=== PATIENT | female | born 2000 | race Hispanic/Latino ===

== ENCOUNTER 2020-09-03 10:37 | Emergency (ER) | payer OTHER, SELFPAY ==
[2020-09-04 00:45] LABS: SARS-COV-2 RT PCR NEGATIVE (NEGATIVE)
[2020-09-04] MEDS ORDERED: MECLIZINE HCL 12.5 MG TAB ONE (00:59)
[2020-09-04] MEDS ORDERED: NA CHLORIDE 0.9% 1,000 ML ONE (01:00)
[2020-09-04] MEDS ORDERED: ONDANSETRON 4 MG/2 ML VIAL ONE (01:00)
[2020-09-04 01:18] LABS: Absolute Lymphocytes (CBC) 2.5 K/uL (0.7-4.9); Basophils % 0.5 % (0-1.3); Hematocrit 36.6 % (36.0-45.0); Lymphocytes % 25.1 % (15.3-44.8); MPV 8.3 fL (7.6-11.3)
[2020-09-04 01:31] LABS: Urine Blood 2+ (NEG); Urine Glucose NEGATIVE (NEG); Urine Protein NEGATIVE (NEG); Urine Specific Gravity 1.025 (1.005-1.030); Urine pH 5.5 (5.0-7.0)
[2020-09-04 01:31] LABS: ALT/SGPT 27 U/L (12-78); AST/SGOT 22 U/L (15-37); Albumin 3.7 g/dL (3.4-5.0); Alkaline Phosphatase 139 U/L (45-117); BUN Blood Urea Nitrogen 16 mg/dL (7-18); Bicarbonate 25 mmol/L (21-32); Bilirubin Direct < 0.1 mg/dL (0-0.2); Bilirubin Total 0.2 mg/dL (0.2-1.0); Glucose Level 83 mg/dL (74-106); Potassium 4.1 mmol/L (3.5-5.1); Protein, Total 8.3 g/dL (6.4-8.2); Sodium Level 142 mmol/L (136-145)
[2020-09-04 03:10] LABS: Urine Bacteria <20 /HPF (<20); Urine RBC <5 /HPF (NONE SEEN)
--- NOTE | 2020-09-04 04:54 | EDPHYS ---
Physician Documentation [facility] Name: Summer Gaming Age: 20 yrs Sex: Female : 2000 Arrival Date: 09/03/2020 Time: 22:37 Bed 20 Private MD: ED Physician Giovanny Martínez HPI: 09/04 00:29 This 20 yrs old Female presents to ER via Ambulatory with complaints of pkl Dizziness. 00:29 The patient presents with sense of spinning. Onset: The symptoms/episode began/occurred pkl just prior to arrival, 3 hour(s) ago. Associated signs and symptoms: Pertinent positives: shortness of breath. [employer]: 03:07 LMP N/A - Recent mg2 Historical: - Allergies: 09/03 22:44 Tramadol HCl; dm5 - Immunization history:: Flu vaccine status is unknown. - Social history:: Smoking status: unknown. ROS: 09/04 00:29 Eyes: Negative for injury, pain, redness, and discharge, ENT: Negative for injury, pkl pain, and discharge, Neck: Negative for injury, pain, and swelling, Cardiovascular: Negative for chest pain, palpitations, and edema. Respiratory: Positive for shortness of breath. Abdomen/GI: Positive for nausea and vomiting. Back: Negative for acute changes. : Negative for urinary symptoms. MS/extremity: Negative for acute changes. Skin: Negative for rash. Neuro: Positive for dizziness, Negative for altered mental status. Exam: 00:29 Head/Face: Normocephalic, atraumatic. Eyes: Pupils equal round and reactive to light, pkl extra-ocular motions intact. Lids and lashes normal. Conjunctiva and sclera are non-icteric and not injected. Cornea within normal limits. Periorbital areas with no swelling, redness, or edema. ENT: Nares patent. No nasal discharge, no septal abnormalities noted. Tympanic membranes are normal and external auditory canals are clear. Oropharynx with no redness, swelling, or masses, exudates, or evidence of obstruction, uvula midline. Mucous membranes moist. Neck: Trachea midline, no thyromegaly or masses palpated, and no cervical lymphadenopathy. Supple, full range of motion without nuchal rigidity, or vertebral point tenderness. No Meningismus. Chest/axilla: Normal chest wall appearance and motion. Nontender with no deformity. No lesions are appreciated. Cardiovascular: Regular rate and rhythm with a normal S1 and S2. No gallops, murmurs, or rubs. Normal PMI, no JVD. No pulse deficits. Respiratory: Lungs have equal breath sounds bilaterally, clear to auscultation and percussion. No rales, rhonchi or wheezes noted. No increased work of breathing, no retractions or nasal flaring. Abdomen/GI: Soft, non-tender, with normal bowel sounds. No distension or tympany. No guarding or rebound. No evidence of tenderness throughout. Back: No spinal tenderness. No costovertebral tenderness. Full range of motion. Skin: Warm, dry with normal turgor. Normal color with no rashes, no lesions, and no evidence of cellulitis. MS/ Extremity: Pulses equal, no cyanosis. Neurovascular intact. Full, normal range of motion. Neuro: Awake and alert, GCS 15, oriented to person, place, time, and situation. Cranial nerves II-XII grossly intact. Motor strength 5/5 in all extremities. Sensory grossly intact. Cerebellar exam normal. Normal gait. Vital Signs: 09/03 22:40 BP 131 / 82; Pulse 80; Resp 20; Temp 98.8(O); Pulse Ox 99% on R/A; Weight 77.11 kg; dm5 Height 5 ft. 6 in. (167.64 cm); Pain 0/10; 09/04 00:11 BP 119 / 92; Pulse 80; Resp 18; Temp 98.5; Pulse Ox 100% on R/A; mg2 03:06 Pulse 81; Resp 18; Temp 98.4; Pulse Ox 100% on R/A; mg2 05:01 BP 132 / 67; Pulse 59; Resp 18; Pulse Ox 100% on R/A; wh 09/03 22:40 Body Mass Index 27.44 (77.11 kg, 167.64 cm) dm5 MDM: 00:17 Patient medically screened. pkl 04:52 Data reviewed: vital signs, nurses notes, lab test result(s). ED course: Patient pkl feeling better. Advised to follow up with PCP in 2 to 3 days Patient understood instruction. 09/04 00:06 Order name: Urine Dipstick--Ancillary (enter results); Complete Time: 02:18 mw2 09/04 00:06 Order name: Urine --Ancillary (enter results); Complete Time: 02:18 mw2 09/04 00:27 Order name: CBC with Diff; Complete Time: 02:18 pkl 09/04 00:27 Order name: Chem 7; Complete Time: 02:18 pkl 09/04 00:27 Order name: D-Dimer; Complete Time: 02:18 pkl 09/04 00:27 Order name: LFT's; Complete Time: 02:18 pkl 09/04 00:28 Order name: XRAY CXR (1 view) pkl 09/04 00:46 Order name: COVID-19/FLU A+B; Complete Time: 02:18 EDMS 09/04 02:22 Order name: Urine Culture pkl 09/04 02:22 Order name: Urine Microscopic Only; Complete Time: 04:44 pkl Administered Medications: 01:00 Drug: Antivert 50 mg Route: PO; 02:41 Follow up: Response: No adverse reaction mg2 01:02 Drug: NS 0.9% 1000 ml Route: IV; Rate: 1000 ml; Site: right hand; 02:43 Follow up: Response: No adverse reaction; IV Status: Completed infusion; IV Intake: mg2 1000ml 01:04 Drug: Zofran (Ondansetron) 4 mg Route: IVP; Site: right hand; 02:43 Follow up: Response: No adverse reaction mg2 Disposition: 09/04/20 04:54 Discharged to Home. Impression: Acute labyrinthitis. - Condition is Stable. - Prescriptions for Antivert 25 mg Oral Tablet - take 1 tablet by ORAL route every 8 hours As needed; 15 tablet. - Medication Reconciliation Form, Thank You Letter, Antibiotic Education, Prescription Opioid Use form. - Follow up: Private Physician; When: 2 - 3 days; Reason: Re-evaluation by your physician. - Problem is new. - Symptoms have improved. Signatures: Dispatcher [employer] Katey Hughes, RN RN dm5 Giovanny Martínez MD MD pkCésar Tinsley RN RN Deyvi Diaz RN RN mg2 Corrections: (The following items were deleted from the chart) 09/03 23:41 22:47 Influenza Screen (A \T\ B)+BA.LAB.BRZ ordered. EDMS EDMS 23:42 22:47 CORONAVIRUS+MR.LAB.BRZ ordered. EDMT EDMT 09/04 01:31 00:29 URINALYSIS+U.LAB.BRZ ordered. [facility] EDMT 05:02 04:54 09/04/2020 04:54 Discharged to Home. Impression: Acute labyrinthitis. Condition wh is Stable. Forms are Medication Reconciliation Form, Thank You Letter, Antibiotic Education, Prescription Opioid Use. Follow up: Private Physician; When: 2 - 3 days; Reason: Re-evaluation by your physician. Problem is new. Symptoms have improved. pkl
--- NOTE | 2020-09-04 04:54 | ER ---
Nurse's Notes [facility] Name: Summer Gaming Age: 20 yrs Sex: Female : 2000 Arrival Date: 09/03/2020 Time: 22:37 Bed 20 Private MD: Diagnosis: Acute labyrinthitis Presentation: 09/03 22:40 Chief complaint: Patient states: she has felt weak for about 3-4 hours and states that dm5 there is pain when she breathes and that it is heavy. Pt states she has had a cough since 08/21. Pt states that she is still bleeding from having a baby on 08/21 and states that there is a foul odor. Coronavirus screen: Client denies travel out of the [place] in the last 14 days. cough unrelated to allergies, fatigue, Client presents with at least one sign or symptom that may indicate coronavirus-19. Standard/surgical mask placed on the client. Ebola Screen: Patient negative for fever greater than or equal to 101.5 degrees Fahrenheit, and additional compatible Ebola Virus Disease symptoms Patient denies exposure to infectious person. Patient denies travel to an Ebola-affected area in the 21 days before illness onset. No symptoms or risks identified at this time. Initial Sepsis Screen: Does the patient meet any 2 criteria? No. Patient's initial sepsis screen is negative. Does the patient have a suspected source of infection? No. Patient's initial sepsis screen is negative. Risk Assessment: Do you want to hurt yourself or someone else? Patient reports no desire to harm self or others. Onset of symptoms was September 03, 2020. 22:40 Method Of Arrival: Ambulatory dm5 22:40 Acuity: CAHSE 3 dm5 TAR HEEL: 09/04 03:07 LMP N/A - Recent mg2 Historical: - Allergies: 09/03 22:44 Tramadol HCl; dm5 - Immunization history:: Flu vaccine status is unknown. - Social history:: Smoking status: unknown. Screenin:57 Abuse screen: Denies threats or abuse. Denies injuries from another. Nutritional mg2 screening: No deficits noted. Tuberculosis screening: No symptoms or risk factors identified. Fall Risk None identified. Assessment: 23:56 General: Appears in no apparent distress. comfortable, Behavior is calm, cooperative. mg2 Pain: Denies pain. Neuro: Level of Consciousness is awake, alert, obeys commands, Oriented to person, place, time, situation. Neuro: Reports dizziness, a syncopal episode. Cardiovascular: Capillary refill < 3 seconds Patient's skin is warm and dry. Respiratory: Airway is patent Respiratory effort is even, unlabored, Respiratory pattern is regular, symmetrical. GI: No signs and/or symptoms were reported involving the gastrointestinal system. : Reports foul urine odor. EENT: No signs and/or symptoms were reported regarding the EENT system. Derm: Skin is intact, is healthy with good turgor, Skin is pink, warm \T\ dry. normal. Musculoskeletal: Circulation, motion, and sensation intact. Capillary refill < 3 seconds. 09/04 01:45 Reassessment: Patient appears in no apparent distress at this time. Patient and/or mg2 family updated on plan of care and expected duration. Pain level reassessed. Patient is alert, oriented x 3, equal unlabored respirations, skin warm/dry/pink. 05:01 Reassessment: Patient appears in no apparent distress at this time. Patient and/or wh family updated on plan of care and expected duration. Pain level reassessed. Patient is alert, oriented x 3, equal unlabored respirations, skin warm/dry/pink. Patient states feeling better. Patient states symptoms have improved. Vital Signs: 09/03 22:40 BP 131 / 82; Pulse 80; Resp 20; Temp 98.8(O); Pulse Ox 99% on R/A; Weight 77.11 kg; dm5 Height 5 ft. 6 in. (167.64 cm); Pain 0/10; 09/04 00:11 BP 119 / 92; Pulse 80; Resp 18; Temp 98.5; Pulse Ox 100% on R/A; mg2 03:06 Pulse 81; Resp 18; Temp 98.4; Pulse Ox 100% on R/A; mg2 05:01 BP 132 / 67; Pulse 59; Resp 18; Pulse Ox 100% on R/A; wh 09/03 22:40 Body Mass Index 27.44 (77.11 kg, 167.64 cm) dm5 ED Course: 09/03 22:37 Patient arrived in ED. cl3 22:44 Triage completed. dm5 23:39 COVID swab sent to lab. Flu and/or RSV swab sent to lab. sg 23:50 Gardose, Deyvi, ZULAY is Primary Nurse. mg2 23:57 No provider procedures requiring assistance completed. mg2 23:57 Patient has correct armband on for positive identification. Pulse ox on. NIBP on. Door mg2 closed. Warm blanket given. 09/04 00:17 Giovanny Martínez MD is Attending Physician. pkvishal 00:55 Inserted saline lock: 20 gauge in right hand, using aseptic technique. Blood collected. mg2 01:01 LFT's Sent. jb5 01:01 D-Dimer Sent. jb5 01:01 Chem 7 Sent. jb5 01:01 CBC with Diff Sent. jb5 01:03 XRAY CXR (1 view) In Process Unspecified. EDMS 01:26 Notified ED physician of a critical lab result(s). d-dimer 1360. dm5 03:07 Arm band placed on. mg2 05:02 IV discontinued, intact, bleeding controlled, No redness/swelling at site. Administered Medications: 01:00 Drug: Antivert 50 mg Route: PO; 02:41 Follow up: Response: No adverse reaction mg2 01:02 Drug: NS 0.9% 1000 ml Route: IV; Rate: 1000 ml; Site: right hand; 02:43 Follow up: Response: No adverse reaction; IV Status: Completed infusion; IV Intake: mg2 1000ml 01:04 Drug: Zofran (Ondansetron) 4 mg Route: IVP; Site: right hand; 02:43 Follow up: Response: No adverse reaction mg2 Intake: 02:43 IV: 1000ml; Total: 1000ml. mg2 Outcome: 04:54 Discharge ordered by . pkl 05:01 Discharged to home ambulatory. 05:01 Condition: improved 05:01 Discharge instructions given to patient, Instructed on discharge instructions, follow up and referral plans. medication usage, POC Demonstrated understanding of instructions, follow-up care, medications, POC Prescriptions given X 1. 05:02 Patient left the ED. Signatures: Dispatcher [employer] EDMS Katey Davis RN Ramiro Borrego RN Giovanny Desir MD MD pkl Broussard, Jennifer jb5 César Devine RN RN Deyvi Diaz RN RN [facility] [place] Fanta Pace cl3
[2020-09-04 05:08] VITALS: O2SAT 100
[2020-09-04 05:10] VITALS: TEMP 98.4
[2020-09-04 05:11] VITALS: BP 132/67
--- NOTE | 2020-09-04 08:29 | RAD REPORT ---
EXAM DESCRIPTION: RAD - Chest Single View - 09/04/2020 1:02 am CLINICAL HISTORY: DYSPNEA COMPARISON: None TECHNIQUE: AP portable chest image was obtained 09/04/2020 1:02 am . FINDINGS: Lungs are clear. Heart and vasculature are normal. No measurable pleural effusion and no p neumothorax. No acute bony abnormality seen. No acute aortic findings suspected. IMPRESSION: No acute cardiopulmonary process.
== END 2020-09-04 05:02 | disposition home or self-care (01) ==
LOC: ER 22:36
DX: H83.09 Labyrinthitis, unspecified ear (principal); Z20.822 Contact with and (suspected) exposure to COVID-19; Z88.5 Allergy status to narcotic agent
CPT/HCPCS: 0240U; 36415; 71045; 80048; 80076; 81003; 81015; 81025; 85025; 85379; 87086; 87088; 96361; 96374; 99284; J2405; J7030

== ENCOUNTER 2022-04-08 17:14 | Emergency (ER) | payer SELFPAY ==
--- OUTSIDE RECORDS SUMMARY | 2022-04-08 17:17 | XMS REPORT | Continuity of Care Document ---
:2000 Author Organization [facility] t Address [address] Chambers [address] [place] [id number] Care Team Providers Name Role Phone IRINEO ROBERT Primary Care Physician Unavailable IRINEO ROBERT Attending Clinician Unavailable Visit, SandraRmchp Nurse Attending Clinician Unavailable Irineo Resendez Attending Clinician HOLLY CALVO Attending Clinician Unavailable Holly Cantu Attending Clinician [phone] Payers Payer Name Policy Type Policy Number Effective Date Expiration Date Beau toscano [employer] [id number] 2021 ANA 101-150% 00:00:00 Problems Condition Condition Condition Status Onset Resolution Last Treating Co mments Source Name Details Category Date Date Treatment Clinician Date Other Other Disease Active Univers general general 2-09 [place] of counseling [place] advice and advice 00 [place] [facility] Branch contracept contracept mamie mamie management management Chorioamni Chorioamni Disease Active 2019-08 [place] onitis onitis 2- ity of 00:00: [place] [facility] 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 it y of tosis tosis 00:00: [place] [address] Medical Branch History of History of Disease Active 2019-08 [place] kidney kidney 2-28 ity of stones stones 00:00: [place] [facility] Vaginal Vaginal Disease Active 2019-08 Univers yeast yeast 0-23 [place] of infection [place] Vaginal Vaginal Disease Active 2019-08 Univers itching itching 0-14 ity of 00:00: [place] [facility] Flu Flu Disease Active 2019-08 Univers vaccine vaccine 0-14 ity of need need 00:00: [place] [facility] Iron Iron Disease Active Univers disorder disorder 8-12 ity of 00:00: [place] [facility] [place] Allergies, Adverse Reactions, Alerts Allergy Allergy Status Severity Reaction(s) Onset Inactive Treating Comm ents Source Name Type Date Date Clinician Tramadol Propensi Active Hives Univer s ty to 8-12 ity of adverse 00:00: [place] reaction 00 Medical s Branch TRAMADOL DRUG Active Hives Univers INGREDI 8-12 ity of 00:00: [address] Social History Social Habit Start Date Stop Date Quantity Comments Source Exposure to 2022-01-25 2022-02-04 Not sure [facility] SARS-CoV-2 00:00:00 15:22:[address] [facility] (event) [place] Alcohol intake 2022-02-04 2022-02-04 Ex-drinker [facility] 00:00:00 00:00:00 (finding) [facility] Tobacco use and 2020-04-04 2020-04-04 Never used Universit y of exposure 00:00:00 00:00:00 [facility] Sex Ass[birth year] At [birth year] Universit y of 00:00:00 00:00:00 [facility] Smoking Status Start Date Stop Date Source Never smoker [facility] Medications Ordered Filled Start Stop Current Ordering Indication Dosage Frequency Signature Comments Components Source Medication Medication Date Date Medication? Clinician (SIG) Name Name medroxyPROG 2022- No [id number] 150mg Univers ESTERone 11-13- ity of (DEPO-PROVE 16:30: 17:29 [place] RA) 00 :00 Medical injection Branch 150 mg medroxyPROG 2022- No [id number] 150mg 150 mg, Univers ESTERone 11-13- Intramuscu ity of (DEPO-PROVE 16:30: 17:29 juliana [place] RA) 00 :00 [id number], Medical injection 4 doses, Branch 150 mg First dose on Thu11/13/21 at 1130, Last dose on Thu07/23/22 at 1130, Routine medroxyPROG 2022- No [id number] 150mg Univers ESTERone 11-13 ity of (DEPO-PROVE 16:30: 17:29 [facility]) 00 :00 Medical injection Branch 150 mg medroxyPROG No [id number] 150mg 150 mg, Univers ESTERone 11-13 Intramuscu ity of (DEPO-PROVE 16:30: 17:29 lar, [facility]) 00 :00 [id number], Medical injection 4 doses, Branch 150 mg First dose on Thu11/13/21 at 1130, Last dose on Thu07/23/22 at 1130, Routine norethindro 2021- No [id number] 1{tbl} Take 1 Univers ne 0.35 mg 5-27 -16 tablet by ity of tablet 00:00: 00:00 mouth [place] 00 :00 daily. Medical Branch norethindro 2021- No [id number] 1{tbl} Take 1 Univers ne 0.35 mg 5-27 -16 tablet by ity of tablet 00:00: 00:00 mouth [place] 00 :00 daily. Medical Branch docusate 2019-08- No [id number] 240mg Take 1 U nivers calcium 240 16 capsule by i ty of mg capsule 00:00: 00:00 mouth once [place] 00 :00 daily as Medical needed for Branch Constipati on. 2019-08- No [id number] 1{tbl} Take 1 Univers vitamin -21 11-16 tablet by ity of w/FA tablet 00:00: [place] daily. [place] ferrous 2019-08- No [id number] 325mg Take 1 Un christina sulfate 325 -16 tablet by it y of mg (65 mg 00:00: 00:00 [place] iron[place] 00 :00 (two) Medical tablet times Branch daily. ibuprofen 2019-08 No [id number] 600mg Take 1 Univers 600 mg 2-31 03-16 tablet by ity of tablet 00:00: 00:00 mouth [place] 00 :00 every 6 Medical (six) Branch hours as needed (Pain). Take with food or milk. docusate 2019-08- No [id number] 240mg Take 1 U nivers calcium 240 11-06 capsule by i ty of mg capsule 00:00: 00:00 mouth once [place] 00 :00 daily as Medical needed for Branch Constipati on. 2019-08- No [id number] 1{tbl} Take 1 Univers vitamin 11-06 tablet by ity of w/FA tablet 00:00: 00:[place] daily. [place] ferrous 2019-08- No [id number] 325mg Take 1 Un christina sulfate 325 11-06 tablet by it y of mg (65 mg 00:00: 00:00 [place] iron[place] 00 :00 (two) Medical tablet times Branch daily. ibuprofen 2019-08 No [id number] 600mg Take 1 Univers 600 mg 11-06 tablet by ity of tablet 00:00: 00:00 mouth [place] 00 :00 every 6 Medical (six) Branch hours as needed (Pain). Take with food or milk. Immunizations Ordered Filled Immunization Date Status Comments [facility] e Immunization Name Name [facility]9 2021-11-06 Completed University of 00:00:00 [facility]9 2021-11-06 Completed University of 00:00:00 [facility] HPV9 2021-11-06 Completed University of 00:00:00 [facility] HPV9 2021-11-06 Completed University of 00:00:00 [facility]9 2020-10-02 Completed University of 00:00:00 [facility]9 2020-10-02 Completed University of 00:00:00 [facility]9 2020-10-02 Completed University of 00:00:00 [facility]9 2020-10-02 Completed University of 00:00:00 [facility]9 2020-08-22 Completed University of 00:00:00 [facility]9 2020-08-22 Completed University of 00:00:00 [facility]9 2020-08-22 Completed University of 00:00:00 [facility]9 2020-08-22 Completed University 00:00:00 [facility] Influenza Virus 2020-06-06 Completed Universit y of Vaccine Quad .5 mL 00:00:00 [place] [facility] IM 6+ MO Branch TDAP 2020-06-06 Completed University 00:00:00 [facility] Influenza Virus 2020-06-06 Completed Universit y of Vaccine Quad .5 mL 00:00:00 [place] [facility] IM 6+ MO Branch TDAP 2020-06-06 Completed University 00:00:00 [facility] Influenza Virus 2020-06-06 Completed Universit y of Vaccine Quad .5 mL 00:00:[address] [facility] IM 6+ MO Branch TDAP 2020-06-06 Completed University 00:00:00 [facility] Influenza Virus 2020-06-06 Completed Universit y of Vaccine Quad .5 mL 00:00:[address] [facility] IM 6+ MO Branch TDAP 2020-06-06 Completed University 00:00:00 [facility] Vital Signs Vital Name Observation Time Observation Value Comments Source Systolic blood 2022-02-04 20:22:00 119 mm[Hg] Univer sity of pressure [facility] Diastolic blood 2022-02-04 20:22:00 76 mm[Hg] Unive rsity of [facility] Heart rate 2022-02-04 20:22:00 90 /min [facility] Body temperature 2022-02-04 20:22:00 36.33 Susan [facility] Respiratory rate 2022-02-04 20:22:00 18 /min [facility] Body height 2022-02-04 20:22:00 165.1 cm [facility] Body weight 2022-02-04 20:22:00 75.569 kg [facility] BMI 2022-02-04 20:22:00 27.72 kg/m2 [facility] Systolic blood 2021-11-13 16:15:00 116 mm[Hg] Univer sity of pressure [facility] Diastolic blood 2021-11-13 16:15:00 84 mm[Hg] Unive rsity of pressure [facility] Heart rate 2021-11-13 16:15:00 93 /min [facility] Body temperature 2021-11-13 16:15:00 36.89 Susan [facility] 2021-11-13 16:15:00 18 /min [facility] ersity [facility] Body height 2021-11-13 16:15:00 165.1 cm Universi ty of [facility] Body weight 2021-11-13 16:15:[address] [facility] BMI 2021-11-13 16:15:00 28.12 kg/m2 Universi ty [facility] Systolic blood 2021-11-06 15:43:00 129 mm[Hg] Univer sity of pressure [facility] Diastolic blood 2021-11-06 15:43:00 82 mm[Hg] Unive rsity of [facility] Heart rate 2021-11-06 15:43:00 96 /min Universi ty [facility] Body temperature 2021-11-06 15:43:00 36.44 Susan [facility] Respiratory rate 2021-11-06 15:43:00 18 /min [facility] ersity [facility] Body height 2021-11-06 15:43:00 165.1 cm Universi ty of [facility] Body weight 2021-11-06 15:43:[address] [facility] BMI 2021-11-06 15:43:00 [facility] Procedures Procedure Date / Time Performed Performing Clinician Sour e POCT TEST 2021-11-13 16:32:00 Holly Calvo [facility] GC & CHLAMYDIA 2021-11-06 16:53:00 [facility] [place] [facility] GARDASIL 9 (HPV 9V) 2021-11-06 15:48:10 Holly Calvo [facility] VACCINE [facility] POCT TEST 2021-11-06 15:45:00 Holly Calvo [facility] Encounters Start End Encounter Admission Attending Care Care Encounter Source Date/Time Date/Time Type Type Clinicians Facility Department ID 2022-11-06 2022-11-06 Outpatient Lulu ROBERT [facility] [id number] [facility] 10:30:00 10:30:00 JEFERSONNDA ity o f [facility] 2022-04-29 2022-04-29 Outpatient R [facility] [id number] Univers 09:00:00 09:00:[id number] [facility] 2022-04-29 2022-04-29 Outpatient [facility] [id number] Univers 09:00:00 09:00:[address] [facility] 2022-02-05 2022-02-05 Outpatient [facility] [id number] Univers 08:00:00 08:00:[id number] [facility] 2022-02-05 2022-02-05 Outpatient [facility] [id number] Univers 08:00:00 08:00:00 SINAIA ity o f [facility] 2022-02-04 2022-02-04 Nurse Visit, Ang-Rmchp Nurse [facility] [id number] Univers 15:00:00 15:15:00 Visit Irineo Robert SUSTAINABILITY PURCHASING AGENT [id number] [id number] Demetrio as MATERNAL [id number] Med ical & CHILD [address] [place] [address] 2022-02-04 2022-02-04 Outpatient R [facility] [id number] Univers 15:00:00 15:00:[id number] [facility] 2022-02-04 2022-02-[address] [facility] [id number] Univers 15:00:00 15:00:00 SINAIA ity o f [facility] 2021-11-14 2021-11-14 Outpatient [facility] [id number] Univers 14:30:00 14:30:00 SINAIA frankliny o f [facility] 2021-11-14 2021-11-14 Outpatient R [facility] [id number] Univers 10:30:00 10:30:[id number] [facility] 2021-11-13 2021-11-[address] [facility] [id number] Univers 10:30:00 11:30:05 IRINEO noel [facility] 2021-11-13 2021-11-13 Nurse Visit, Ang-Rmchp Nurse [facility] [id number] Univers 10:30:00 11:30:05 Visit Irineo Robert R SUSTAINABILITY PURCHASING AGENT [id number] [facility] [id number] Demetrio as MATERNAL [id number] [facility] & [address] 2021-11-13 2021-11-13 Outpatient R [facility] [id number] Univers 10:30:00 10:30:00 [id number] 2021-11-13 2021-11-[address] [facility] [id number] Univers 10:30:00 10:30:00 IRINEO morales [facility] 2021-11-06 2021-11-[address] [facility] [id number] Univers 13:00:00 11:42:45 HOLLY morales [facility] 2021-11-06 2021-11-[address] [facility] [id number] Univers 10:30:00 11:42:38 HOLLY morales [facility] 2021-11-06 2021-11-06 [facility] [id number] Univers 10:30:00 11:42:38 Visit Holly Carrero SUSTAINABILITY PURCHASING AGENT [id number] [facility] [id number] Demetrio as MATERNAL [id number] [facility] & [address] Results Test Description Test Time Test Comments Results Result Comments Source POCT TEST 2021-11-13 16:32:00 Test Item Value Reference Range Interpretation Comme nts POCT PREG (test code = 1605) Negative On board controls acceptable with C Line (test code = 3574) Yes POCT PREG LOT # (test code = 3575) POCT [facility]REG TEST [facility] (test code = 3576[id number] 15:45:00 Test Item Value Reference Range Interpretation Comments POCT PREG (test code = 1605) Negative On board controls acceptable with C Yes Line (test code = 3574) POCT PREG LOT # (test code = 3575) POCT PREG TEST DATE (test code = 3576[facility] [id number] 15:45:00 Test Item Value Reference Range Interpretation Comments POCT PREG (test code = 1605) Negative On board controls acceptable with C Yes Line (test code = 3574) POCT PREG LOT # (test code = 3575) POCT PREG TEST DATE (test code = 3576) [facility]
[2022-04-08] MEDS ORDERED: ONDANSETRON 4 MG (ODT) TAB ONE (18:07)
--- NOTE | 2022-04-08 18:24 | RAD REPORT ---
EXAM DESCRIPTION: Javier Morales And Linda (2 Views)04/08/2022 6:17 pm CLINICAL HISTORY: Cough COMPARISON: 2020 FINDINGS: The lungs appear clear of acute infiltrate. The heart is normal size IMPRESSION: No acute abnormalities displayed
[2022-04-08 18:58] LABS: Urine Blood 1+ (Negative); Urine Glucose Negative (Negative); Urine Protein Negative (Negative); Urine Specific Gravity >=1.030 (1.005-1.030)
[2022-04-08 19:16] LABS: Urine Bacteria <20 /HPF (<20); Urine RBC <5 /HPF (None Seen)
[2022-04-08 19:17] LABS: Urine Mucus 1+ /HPF (None Seen)
--- NOTE | 2022-04-08 19:43 | EDPHYS ---
Physician Documentation [facility] Name: Summer Cassidy Age: 22 yrs Sex: Female : 2000 Arrival Date: 04/08/2022 Time: 17:16 Bed Treatment Private MD: ED Physician Cody Ridley HPI: 04/08 18:15 This 22 yrs old Female presents to ER via Ambulatory with complaints of Eye cp Problem, Fever, Nausea/Vomiting. 18:15 The patient is experiencing matting or discharge, pain, redness, to the left eye. cp Onset: The symptoms/episode began/occurred 2 day(s) ago. Duration: the symptoms are continuous. Associated signs and symptoms: Pertinent positives: cough times 1 week, sore throat, nausea/vomiting. Patient does not utilize any form of vision correction. Severity of symptoms: in the emergency department the symptoms are unchanged despite home interventions. Historical: - Allergies: 17:51 Tramadol HCl; hb - Home Meds: 17:51 None [Active]; hb - PMHx: 17:51 None; hb - PSHx: 17:51 section; hb - Immunization history:: Adult Immunizations up to date. ROS: 18:20 Constitutional: Negative for body aches, chills, fever, poor PO intake. cp 18:20 Eyes: Positive for discharge, pain, redness, of the left eye. cp 18:20 ENT: Positive for sore throat, Negative for drainage from ear(s), ear pain, difficulty swallowing, difficulty handling secretions. 18:20 Cardiovascular: Negative for chest pain, palpitations. 18:20 Respiratory: Positive for cough, "sounds productive", Negative for shortness of breath, wheezing. 18:20 Abdomen/GI: Positive for nausea and vomiting, Negative for abdominal pain, diarrhea, constipation. 18:20 : Negative for burning with urination. 18:20 Skin: Negative for cellulitis, rash. 18:20 Neuro: Positive for headache. cp 18:20 All other systems are negative. Exam: 18:30 Constitutional: The patient appears in no acute distress, alert, awake, non-toxic, well cp developed, well nourished. 18:30 Head/Face: Normocephalic, atraumatic. cp 18:30 Eyes: Periorbital structures: appear normal, Pupils: equal, round, and reactive to light and accomodation, Extraocular movements: intact throughout, Conjunctiva: injected, in the left eye, mild, Corneas: are normal, Sclera: no appreciated abnormality, Lids and lashes: scant yellow drainage noted left lower lid. Visual gaming: are intact. 18:30 ENT: External ear(s): are unremarkable, Ear canal(s): are normal, clear, TM's: dullness, bilaterally, Nose: is normal, Mouth: Lips: moist, Oral mucosa: pink and intact, moist, Posterior pharynx: Airway: no evidence of obstruction, patent, Tonsils: with erythema, no enlargement, no exudate, swelling, is not appreciated, erythema, that is mild, exudate, is not appreciated, Voice: is normal. 18:30 Neck: ROM/movement: is normal, is supple, without pain, no range of motions limitations, no meningismus, Lymph nodes: no appreciated lymphadenopathy. 18:30 Chest/axilla: Inspection: normal. 18:30 Cardiovascular: Rate: tachycardic, Rhythm: regular. 18:30 Respiratory: the patient does not display signs of respiratory distress, Respirations: normal, no use of accessory muscles, no retractions, labored breathing, is not present, Breath sounds: are clear throughout, no decreased breath sounds, no stridor, no wheezing. 18:30 Abdomen/GI: Exam negative for discomfort, distension, guarding, Inspection: abdomen appears normal. 18:30 Back: CVA tenderness, is absent. 18:30 Skin: cellulitis, is not appreciated, no rash present. 18:30 Neuro: Orientation: to person, place \\T\\ time. Mentation: is normal, Motor: moves all fours, strength is normal, Sensation: is normal, Gait: is steady. Vital Signs: 17:49 BP 143 / 106; Pulse 101; Resp 16; Temp 99.9(O); Pulse Ox 100% on R/A; Weight 75.75 kg; hb Height 5 ft. 6 in. (167.64 cm); Pain 7/10; 20:42 BP 137 / 84; Pulse 91; Resp 17; Temp 98.9; Pulse Ox 100% on R/A; ha1 17:49 Body Mass Index 26.95 (75.75 kg, 167.64 cm) hb MDM: 18:53 Patient medically screened. cp 19:05 Differential diagnosis: Allergic conjunctivitis in Infectious conjunctivitis in cp tonsillitis, COVID-19, influenza, strep, bronchitis. 19:41 Data reviewed: vital signs, nurses notes, lab test result(s), radiologic studies, plain cp films. 19:41 Test interpretation: by ED physician or midlevel provider: plain radiologic studies. cp Counseling: I had a detailed discussion with the patient and/or guardian regarding: the historical points, exam findings, and any diagnostic results supporting the discharge/admit diagnosis, lab results, radiology results, to return to the emergency department if symptoms worsen or persist or if there are any questions or concerns that arise at home. ED course: VSS. Patient appears non-toxic and no signs of respiratory distress. Will discharge to home for continued monitoring. 04/08 17:58 Order name: Influenza Screen (a \\T\\ B); Complete Time: 19:32 04/08 17:58 Order name: Strep; Complete Time: 19:32 04/08 17:58 Order name: COVID-19 SARS RT PCR (Document "Date of Onset" if Symptomatic); Complete cp Time: 19:32 04/08 17:58 Order name: Urine Microscopic Only; Complete Time: 19:32 04/08 19:33 Interpretation: Reviewed. 04/08 18:58 Order name: Urine Dipstick-Ancillary; Complete Time: 19:32 [facility] 04/08 19:32 Interpretation: Normal except: UBLD 1+. 04/08 17:58 Order name: XRAY Chest Pa And Lat (2 Views); Complete Time: 19:32 04/08 19:32 Interpretation: Report reviewed. 04/08 17:58 Order name: Urine Dipstick-Ancillary (obtain specimen); Complete Time: 18:52 04/08 17:58 Order name: Urine Test (obtain specimen); Complete Time: 18:54 04/08 19:02 Order name: Throat Culture [facility] 04/08 19:20 Order name: Urine Culture [facility] 04/08 19:34 Order name: Vital Signs: please update to include blood pressure; Complete Time: 20:43 cp 04/08 19:39 Order name: Visual Acuity; Complete Time: 20:43 cp Administered Medications: 17:59 Drug: Zofran (Ondansetron) 4 mg Route: PO; hb 20:43 Follow up: Response: No adverse reaction ha1 Disposition: 21:16 Co-signature as Attending Physician, Cody Ridley DO I was immediately available on-site ms3 in the Emergency Department for consultation in the care of the patient.. Disposition Summary: 04/08/22 19:42 Discharge Ordered Location: Home cp Problem: new cp Symptoms: have improved cp Condition: Stable cp Diagnosis - Unspecified acute conjunctivitis, left eye cp - Acute upper respiratory infection, unspecified cp Followup: cp - With: Private Physician - When: 2 - 3 days - Reason: Worsening of condition Discharge Instructions: - Discharge Summary Sheet cp - Upper Respiratory Infection, Adult cp - Cool Mist Vaporizer cp Forms: - Medication Reconciliation Form cp - Thank You Letter cp - Antibiotic Education cp - Prescription Opioid Use cp - Work release form mw2 Prescriptions: - Vigamox 0.5 % Ophthalmic Drops - instill 1 drop by OPHTHALMIC route every 8 hours for 7 days; 5 milliliter; cp Refills: 0, Product Selection Permitted - Tessalon Perles 100 mg Oral Capsule - take 1 capsule by ORAL route every 8 hours As needed; 15 capsule; Refills: 0, cp Product Selection Permitted - Zofran 4 mg Oral Tablet - take 1 tablet by ORAL route every 12 hours As needed; 6 tablet; Refills: 0, cp Product Selection Permitted - Zithromax Z-Rodríguez 250 mg Oral Tablet - take 1 tablet by ORAL route as directed for 5 days Day 1 - take two (2) tablets cp one time. Day 2, 3, 4 , 5 take one (1) tablet once daily.; 6 tablet; Refills: 0, Product Selection Permitted Signatures: Dispatcher [employer] EDHI Joseph Yusuf PA PA cp Trixie Caldera RN RN Cody Ridley DO DO ms3 La Nena Sage RN RN ha1 Corrections: (The following items were deleted from the chart) 04/09 16:22 08 18:20 All other systems are negative, cp cp
--- NOTE | 2022-04-08 19:43 | ER ---
Nurse's Notes [facility] Name: Summer Cassidy Age: 22 yrs Sex: Female : 2000 Arrival Date: 04/08/2022 Time: 17:16 Bed Treatment Private MD: Diagnosis: Unspecified acute conjunctivitis, left eye;Acute upper respiratory infection, unspecified Presentation: 04/08 17:49 Chief complaint: Left eye redness and burning x 2 days, fever, N/V, headache, and sore hb throat today. TMAX 100.1. Coronavirus screen: Client presents with at least one sign or symptom that may indicate coronavirus-19. Standard/surgical mask placed on the client. Provider contacted for isolation considerations. Ebola Screen: No symptoms or risks identified at this time. Risk Assessment: Do you want to hurt yourself or someone else? Patient reports no desire to harm self or others. Onset of symptoms was April 07, 2022. 17:49 Method Of Arrival: Ambulatory hb 17:49 Acuity: CHASE 3 hb 17:53 Initial Sepsis Screen: Does the patient meet any 2 criteria? No. Patient's initial hb sepsis screen is negative. Does the patient have a suspected source of infection? No. Patient's initial sepsis screen is negative. Historical: - Allergies: 17:51 Tramadol HCl; hb - Home Meds: 17:51 None [Active]; hb - PMHx: 17:51 None; hb - PSHx: 17:51 section; hb - Immunization history:: Adult Immunizations up to date. Screenin:54 Abuse screen: Denies threats or abuse. Denies injuries from another. Nutritional iw screening: No deficits noted. Tuberculosis screening: No symptoms or risk factors identified. Fall Risk None identified. Assessment: 18:54 General: Appears in no apparent distress. Behavior is calm, cooperative. Pain: Pain: iw Complains of pain in head. 18:54 Neuro: Level of Consciousness is awake, alert, obeys commands, Oriented to person, iw place, time, situation, Moves all extremities. Full function. Cardiovascular: Patient's skin is warm and dry. Respiratory: Respiratory effort is even, unlabored, Respiratory pattern is regular, symmetrical. GI: Abdomen is non-distended, Reports nausea, vomiting. Derm: Skin is intact, is healthy with good turgor. Musculoskeletal: Range of motion: intact in all extremities. Vital Signs: 17:49 BP 143 / 106; Pulse 101; Resp 16; Temp 99.9(O); Pulse Ox 100% on R/A; Weight 75.75 kg; hb Height 5 ft. 6 in. (167.64 cm); Pain 7/10; 20:42 BP 137 / 84; Pulse 91; Resp 17; Temp 98.9; Pulse Ox 100% on R/A; ha1 17:49 Body Mass Index 26.95 (75.75 kg, 167.64 cm) hb ED Course: 17:16 Patient arrived in ED. rg4 17:32 Joseph Yusuf PA is PHCP. cp 17:32 Cody Ridley DO is Attending Physician. cp 17:51 Triage completed. hb 17:51 Arm band placed on. hb 18:19 XRAY Chest Pa And Lat (2 Views) In Process Unspecified. EDMS 18:54 No provider procedures requiring assistance completed. Patient did not have IV access iw during this emergency room visit. 19:57 Tammi Kraus, RN is Primary Nurse. iw 20:44 Patient has correct armband on for positive identification. Bed in low position. Call ha1 light in reach. Side rails up X 1. Client placed on continuous cardiac and pulse oximetry monitoring. NIBP monitoring applied. Door closed. Noise minimized. Family accompanied patient. Administered Medications: 17:59 Drug: Zofran (Ondansetron) 4 mg Route: PO; hb 20:43 Follow up: Response: No adverse reaction ha1 Medication: 20:44 VIS not applicable for this client. ha1 Outcome: 19:42 Discharge ordered by . cp 20:43 Discharged to home ambulatory. ha1 20:43 Condition: stable 20:44 Discharge instructions given to patient, Instructed on discharge instructions, follow ha1 up and referral plans. medication usage, Prescriptions given X 4. 21:19 Patient left the ED. ha1 Signatures: Dispatcher [employer] EDMS Tammi Kraus RN RN iw Joseph Yusuf PA PA cp Baxter, Heather, RN RN hb Garcia, Rubi rg4 La Nena Sage RN RN ha1 Corrections: (The following items were deleted from the chart) 17:53 17:49 Chief complaint: Left eye redness and burning x 2 days, fever and N/V today. TMAX hb 100.1 hb 19:58 18:54 Pain: iw iw
[2022-04-08 21:37] VITALS: O2SAT 100
[2022-04-08 21:40] VITALS: BP 137/84; TEMP 98.9
== END 2022-04-08 21:19 | disposition home or self-care (01) ==
LOC: ER 17:14
DX: H10.32 Unspecified acute conjunctivitis, left eye (principal); J06.9 Acute upper respiratory infection, unspecified; Z88.5 Allergy status to narcotic agent; Z20.822 Contact with and (suspected) exposure to COVID-19
CPT/HCPCS: 71046; 81003; 81015; 87070; 87081; 87086; 87088; 87804; Q0162; U0003

== ENCOUNTER 2022-04-11 07:45 | Emergency (ER) | payer SELFPAY ==
--- OUTSIDE RECORDS SUMMARY | 2022-04-11 07:49 | XMS REPORT | Continuity of Care Document ---
:2000 Author Organization [facility] t Address [address] [place] [address] [place] [address] Care Team Providers Name Role Phone IRINEO ROBERT Primary Care Physician Unavailable IRINEO ROBERT Attending Clinician Unavailable Visit, SandraRmchp Nurse Attending Clinician Unavailable Irineo Resendez Attending Clinician HOLLY CALVO Attending Clinician Unavailable Holly Cantu Attending Clinician [phone] Payers Payer Name Policy Type Policy Number Effective Date Expiration Date Beau toscano [employer] [id number] 2021 ANA 101-150% 00:00:00 Problems Condition Condition Condition Status Onset Resolution Last Treating Co mments Source Name Details Category Date Date Treatment Clinician Date Other Other Disease Active Univers general general 2-09 ity of counseling [place] and advice and advice 00 Wi dical for 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 2 it y of tosis tosis 00:00: [place] [id number] Medical Branch History of History of Disease Active 2019-08 [place] kidney kidney 2-28 ity of stones stones 00:00: [place] [facility] Vaginal Vaginal Disease Active 2019-08 Univers yeast yeast 0-23 [place] of infection [place] [facility] Vaginal Vaginal Disease Active 2019-08 Univers itching itching 0-14 ity of 00:00: [place] [facility] Flu Flu Disease Active 2019-08 Univers vaccine vaccine 0-14 ity of need need 00:00: [place] [facility] Iron Iron Disease Active Univers disorder disorder 8-12 ity of 00:00: [place] [facility] [place] Allergies, Adverse Reactions, Alerts Allergy Allergy Status Severity Reaction(s) Onset Inactive Treating Comm ents Source Name Type Date Date Clinician Tramadol Propensi Active Hives Univer s ty to 8-12 ity of adverse 00:00: [place] reaction 00 Medical s Branch TRAMADOL DRUG Active Hives Univers INGREDI 8-12 ity of 00:00: [address] Social History Social Habit Start Date Stop Date Quantity Comments Source Exposure to 2022-01-25 2022-02-04 Not sure [facility] SARS-CoV-2 00:00:00 15:22:00 [facility] (event) [place] Alcohol intake 2022-02-04 2022-02-04 Ex-drinker [facility] 00:00:00 00:00:00 (finding) [facility] Tobacco use and 2020-04-04 2020-04-04 Never used Universit y of exposure 00:00:00 00:00:00 [facility] Sex Assigned At [birth year] Universit y of 00:00:00 00:00:00 [facility] Smoking Status Start Date Stop Date Source Never smoker [facility] Medications Ordered Filled Start Stop Current Ordering Indication Dosage Frequency Signature Comments Components Source Medication Medication Date Date Medication? Clinician (SIG) Name Name medroxyPROG 2022- No [id number] 150mg Univers ESTERone 11-13- ity of (DEPO-PROVE 16:30: 17:29 [place] RA) 00 :00 Medical injection Branch 150 mg medroxyPROG 2022- No [id number] 150mg 150 mg, Univers ESTERone 11-13- Intramuscu ity of (DEPO-PROVE 16:30: 17:29 juliana [place] RA) 00 :00 [id number], Medical injection 4 doses, Branch 150 mg First dose on Thu11/13/21 at 1130, Last dose on Thu07/23/22 at 1130, Routine medroxyPROG 2022- No [id number] 150mg Univers ESTERone 11-13 ity of (DEPO-PROVE 16:30: 17:29 [facility]) 00 :00 Medical injection Branch 150 mg medroxyPROG No [id number] 150mg 150 mg, Univers ESTERone 11-13 Intramuscu ity of (DEPO-PROVE 16:30: 17:29 lar, [facility]) 00 :00 [id number], Medical injection 4 doses, Branch 150 mg First dose on Thu11/13/21 at 1130, Last dose on Thu07/23/22 at 1130, Routine norethindro 2021- No [id number] 1{tbl} Take 1 Univers ne 0.35 mg 5-27 -16 tablet by ity of tablet 00:00: 00:00 mouth [place] 00 :00 daily. Medical Branch norethindro 2021- No [id number] 1{tbl} Take 1 Univers ne 0.35 mg 5-27 -16 tablet by ity of tablet 00:00: 00:00 mouth [place] 00 :00 daily. Medical Branch docusate 2019-08- No [id number] 240mg Take 1 U nivers calcium 240 16 capsule by i ty of mg capsule 00:00: 00:00 mouth once [place] 00 :00 daily as Medical needed for Branch Constipati on. 2019-08- No [id number] 1{tbl} Take 1 Univers vitamin -21 11-16 tablet by ity of w/FA tablet 00:00: [place] daily. [place] [facility] ferrous 2019-08- No [id number] 325mg Take 1 Un christina sulfate 325 -16 tablet by it y of mg (65 mg 00:00: 00:00 mouth [place] iron[place] 00 :00 (two) Medical tablet times Branch daily. ibuprofen 2019-08 No [id number] 600mg Take 1 Univers 600 mg 2-31 03-16 tablet by ity of tablet 00:00: 00:00 mouth [place] 00 :00 every 6 Medical (six) Branch hours as needed (Pain). Take with food or milk. docusate 2019-08- No [id number] 240mg Take 1 U nivers calcium 240 11-06 capsule by i ty of mg capsule 00:00: 00:00 mouth once [place] 00 :00 daily as Medical needed for Branch Constipati on. 2019-08- No [id number] 1{tbl} Take 1 Univers vitamin 11-06 tablet by ity of w/FA tablet 00:00: 00:[place] 00 [place] daily. [place] [facility] ferrous 2019-08- No [id number] 325mg Take 1 Un christina sulfate 325 11-06 tablet by it y of mg (65 mg 00:00: 00:00 [place] iron[place] 00 :00 (two) Medical tablet times Branch daily. ibuprofen 2019-08 No [id number] 600mg Take 1 Univers 600 mg 11-06 tablet by ity of tablet 00:00: 00:00 mouth [place] 00 :00 every 6 Medical (six) Branch hours as needed (Pain). Take with food or milk. Immunizations Ordered Filled Immunization Date Status Comments [facility] e Immunization Name Name [facility] 2021-11-06 Completed University of 00:00:00 [facility] 2021-11-06 Completed University of 00:00:00 [facility] HPV9 2021-11-06 Completed University of 00:00:00 [facility] HPV9 2021-11-06 Completed University of 00:00:00 [facility] 2020-10-02 Completed University of 00:00:00 [facility] 2020-10-02 Completed University of 00:00:00 [facility] 2020-10-02 Completed University of 00:00:00 [facility] 2020-10-02 Completed University of 00:00:00 [facility] 2020-08-22 Completed University of 00:00:00 [facility] 2020-08-22 Completed University of 00:00:00 [facility] 2020-08-22 Completed University of 00:00:00 [facility] 2020-08-22 Completed University 00:00:00 [facility] Influenza Virus 2020-06-06 Completed Universit y of Vaccine Quad .5 mL 00:00:00 [place] [facility] IM 6+ MO Branch TDAP 2020-06-06 Completed University 00:00:00 [facility] Influenza Virus 2020-06-06 Completed Universit y of Vaccine [place] .5 mL 00:00:00 [place] [facility] IM 6+ MO Branch TDAP 2020-06-06 Completed University 00:00:00 [facility] Influenza Virus 2020-06-06 Completed Universit y of Vaccine Quad .5 mL 00:00:00 [facility] IM 6+ MO Branch TDAP 2020-06-06 Completed University 00:00:00 [facility] Influenza Virus 2020-06-06 Completed Universit y of Vaccine Quad .5 mL 00:00:00 [facility] IM 6+ MO Branch TDAP 2020-06-06 Completed University 00:00:00 [facility] Vital Signs Vital Name Observation Time Observation Value Comments Source Systolic blood 2022-02-04 20:22:00 119 mm[Hg] Univer sity of pressure [facility] Diastolic blood 2022-02-04 20:22:00 76 mm[Hg] Unive rsity of [facility] Heart rate 2022-02-04 20:22:00 90 /min [facility] Body temperature 2022-02-04 20:22:00 36.33 [facility] Respiratory rate 2022-02-04 20:22:00 18 /min [facility] Body height 2022-02-04 20:22:00 165.1 cm [facility] Body weight 2022-02-04 20:22:00 75.569 kg [facility] BMI 2022-02-04 20:22:00 27.72 kg/m2 [facility] Systolic blood 2021-11-13 16:15:00 116 mm[Hg] Univer sity of pressure [facility] Diastolic blood 2021-11-13 16:15:00 84 mm[Hg] Unive rsity of pressure [facility] Heart rate 2021-11-13 16:15:00 93 /min [facility] Body temperature 2021-11-13 16:15:00 36.89 Susan [facility] Res[facility] rate 2021-11-13 16:15:00 18 /min [facility] ersity [facility] Body height 2021-11-13 16:15:00 165.1 cm Universi ty of [facility] Body weight 2021-11-13 16:15:00 76.658 kg Universi ty [facility] BMI 2021-11-13 16:15:00 28.12 kg/m2 Universi ty [facility] Systolic blood 2021-11-06 15:43:00 129 mm[Hg] Univer sity of pressure [facility] Diastolic blood 2021-11-06 15:43:00 82 mm[Hg] Unive rsity of [facility] Heart rate 2021-11-06 15:43:00 96 /min Universi ty [facility] Body temperature 2021-11-06 15:43:00 36.44 Susan [facility] Respiratory rate 2021-11-06 15:43:00 18 /min [facility] ersity [facility] Body height 2021-11-06 15:43:00 165.1 cm Universi ty of [facility] Body weight 2021-11-06 15:43:00 77.367 kg Universi ty [facility] BMI 2021-11-06 15:43:00 28[facility]38 [facility] Procedures Procedure Date / Time Performed Performing Clinician Sour e POCT TEST 2021-11-13 16:32:00 Holly Calvo [facility] GC & CHLAMYDIA 2021-11-06 16:53:00 Holly Calvo [facility] [place] AMPLIFIED ASSAY [facility] GARDASIL 9 (HPV 9V) 2021-11-06 15:48:10 Holly Calvo [facility] VACCINE [facility] POCT TEST 2021-11-06 15:45:00 Holly Calvo Uni [facility] [place] [facility] Encounters Start End Encounter Admission Attending Care Care Encounter Source Date/Time Date/Time Type Type Clinicians Facility Department ID 2022-11-06 2022-11-06 Outpatient Lulu ROBERT [facility] [id number] [facility] 10:30:00 10:30:00 JEFERSONNDA ity o f [facility] 2022-04-29 2022-04-29 Outpatient R [facility] [id number] Univers 09:00:00 09:00:00 [id number] ity [facility] 2022-04-29 2022-04-29 Outpatient R [facility] [id number] Univers 09:00:00 09:00:00 ity [facility] 2022-02-05 2022-02-05 Outpatient R [facility] [id number] Univers 08:00:00 08:00:00 [id number] ity [facility] 2022-02-05 2022-02-05 Outpatient R HOSSEIN [facility] [id number] Univers 08:00:00 08:00:00 SINAIA ity o f [facility] 2022-02-04 2022-02-04 Nurse Visit, Ang-Rmchp Nurse [facility] [id number] Univers 15:00:00 15:15:00 Visit Irineo Robert [employer] [id number] [id number] Demetrio as MATERNAL [id number] Med ical & CHILD [address] [place] [address] 2022-02-04 2022-02-04 Outpatient R [facility] [id number] Univers 15:00:00 15:00:00 [id number] ity [facility] 2022-02-04 2022-02-04 [facility] [id number] Univers 15:00:00 15:00:00 SINAIA ity o f [facility] 2021-11-14 2021-11-14 Outpatient R HOSSEIN [facility] [id number] Univers 14:30:00 14:30:00 SINAIA frankliny o f [facility] 2021-11-14 2021-11-14 Outpatient R [facility] [id number] Univers 10:30:00 10:30:00 [id number] ity [facility] 2021-11-13 2021-11-13 [facility] [id number] Univers 10:30:00 11:30:05 IRINEO noel [facility] 2021-11-13 2021-11-13 Nurse Visit, Ang-Rmchp Nurse [facility] [id number] Univers 10:30:00 11:30:05 Visit Irineo Robert R [employer] [id number] [facility] [id number] Demetrio as MATERNAL [id number] [facility] & [address] 2021-11-13 2021-11-13 Outpatient R [facility] [id number] Univers 10:30:00 10:30:[facility] [id number] 2021-11-13 2021-11-13 [facility] [id number] Univers 10:30:00 10:30:00 IRINEO morales [facility] 2021-11-06 2021-11-06 [facility] [id number] Univers 13:00:00 11:42:45 HOLLY morales [facility] 2021-11-06 2021-11-06 Outpatient [facility] [id number] Univers 10:30:00 11:42:38 HOLLY morales [facility] 2021-11-06 2021-11-06 [facility] [id number] Univers 10:30:00 11:42:38 Visit Holly Carrero [employer] [id number] [facility] [id number] Demetrio as MATERNAL [id number] [facility] & [address] Results Test Description Test Time Test Comments Results Result Comments Source POCT TEST 2021-11-13 16:32:00 Test Item Value Reference Range Interpretation Comme nts POCT PREG (test code = 1605) Negative On board controls acceptable with C Line (test code = 3574) Yes POCT PREG LOT # (test code = 3575) POCT PREG TEST DATE (test code = 3576) [id number] 15:45:00 Test Item Value Reference Range Interpretation Comments POCT PREG (test code = 1605) Negative On board controls acceptable with C Yes Line (test code = 3574) POCT PREG LOT # (test code = 3575) POCT PREG TEST DATE (test code = 3576) [facility] [id number] 15:45:00 Test Item Value Reference Range Interpretation Comments POCT PREG (test code = 1605) Negative On board controls acceptable with C Yes Line (test code = 3574) POCT PREG LOT # (test code = 3575) POCT PREG TEST DATE (test code = 3576) [facility]
[2022-04-11] MEDS ORDERED: IBUPROFEN 400 MG TAB ONE (08:32)
[2022-04-11] MEDS ORDERED: IBUPROFEN 200 MG TAB PO ONE (08:32)
[2022-04-11] MEDS ORDERED: AZITHROMYCIN 250 MG TAB ONE (08:32)
[2022-04-11] MEDS ORDERED: ACETAMINOPHEN 500 MG TAB ONE (08:32)
[2022-04-11] MEDS ORDERED: CEFTRIAXONE 1000 MG/VIAL ONE (08:33)
[2022-04-11] MEDS ORDERED: NA CHLORIDE 0.9% 50 ML ONE (08:33)
[2022-04-11] MEDS ORDERED: NA CHLORIDE 0.9% 1,000 ML ONE (08:33)
[2022-04-11 08:53] LABS: Absolute Lymphocytes (CBC) 1.5 K/uL (0.7-4.9); Hematocrit 38.2 % (36.0-45.0); Lymphocytes % 11.1 % (15.3-44.8); MCV 81.9 fL (80-100); MPV 9.1 fL (7.6-11.3); RBC Red Blood Cell Count 4.67 M/uL (3.86-4.86)
[2022-04-11 09:19] LABS: SARS-CoV-2 Antigen Rapid Res Negative (Negative)
--- NOTE | 2022-04-11 09:40 | ER ---
Nurse's Notes [facility] Name: Summer Cassidy Age: 22 yrs Sex: Female : 2000 Arrival Date: 04/11/2022 Time: 07:49 Bed 15 Private MD: Diagnosis: Fever, unspecified;Acute tonsillitis, unspecified;Acute upper respiratory infection, unspecified Presentation: 04/11 08:02 Chief complaint: Patient states: Seen in ER 3 days ago and diagnosed with bronchitis ss and pink eye. Pt reports that her pink eye is better, but she still has a productive cough and her throat is even more painful now with white patches. Coronavirus screen: Client denies travel out of the [place] in the last 14 days. Ebola Screen: Patient denies exposure to infectious person. Patient denies travel to an Ebola-affected area in the 21 days before illness onset. Initial Sepsis Screen: Does the patient meet any 2 criteria? No. Patient's initial sepsis screen is negative. Does the patient have a suspected source of infection? No. Patient's initial sepsis screen is negative. Risk Assessment: Do you want to hurt yourself or someone else? Patient reports no desire to harm self or others. Onset of symptoms was April 04, 2022. 08:02 Method Of Arrival: Ambulatory ss 08:02 Acuity: CHASE 3 ss Triage Assessment: 10:00 General: Appears uncomfortable, Behavior is calm, cooperative. 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 - Social history:: Smoking status: Patient denies any tobacco usage or history of. Screenin:05 Abuse screen: Denies threats or abuse. Denies injuries from another. Nutritional jg9 screening: No deficits noted. Tuberculosis screening: No symptoms or risk factors identified. Fall Risk None identified. Assessment: 08:00 Reassessment: No changes from previously documented assessment. Patient and/or family jg9 updated on plan of care and expected duration. Pain level reassessed. Patient is alert, oriented x 3, equal unlabored respirations, skin warm/dry/pink. Pain: Complains of pain in uvula, left aspect of posterior pharynx, right aspect of posterior pharynx and neck. Respiratory: Airway is patent Respiratory effort is even, unlabored, Breath sounds are clear bilaterally. EENT: Throat is reddened has patchy exudate has enlarged tonsils. 09:00 Reassessment: Patient states feeling better. Patient states symptoms have improved. jg9 10:00 Reassessment: No changes from previously documented assessment. Patient and/or family jg9 updated on plan of care and expected duration. Pain level reassessed. Patient is alert, oriented x 3, equal unlabored respirations, skin warm/dry/pink. Vital Signs: 08:02 BP 130 / 79; Pulse 121; Resp 17; Temp 101.1(O); Pulse Ox 97% on R/A; Weight 75.75 kg; ss Height 5 ft. 6 in. (167.64 cm); Pain 8/10; 08:08 Temp 101.1(O); ss 10:00 BP 134 / 75; Pulse 100; Resp 17 S; Pulse Ox 17% on R/A; jg9 08:02 Body Mass Index 26.95 (75.75 kg, 167.64 cm) ED Course: 07:49 Patient arrived in ED. am2 08:04 Triage completed. 08:04 Arm band placed on left wrist. 08:06 Joseph Juárez MD is Attending Physician. [facility] 08:18 Zaida Almanzar, ZULAY is Primary Nurse. jg9 08:25 Inserted saline lock: 24 gauge in left forearm, using aseptic technique. Blood jg9 collected. Missed attempt(s): 22 gauge in right antecubital area. 10:00 Patient has correct armband on for positive identification. Bed in low position. Call jg9 light in reach. Side rails up X 1. 10:37 No provider procedures requiring assistance completed. jg9 10:49 IV discontinued. jg9 Administered Medications: 08:40 Drug: NS 0.9% 1000 ml Route: IV; Rate: 1 bolus; Site: left forearm; jg9 10:15 Follow up: IV Status: Completed infusion; IV Intake: 1000ml jg9 08:40 Drug: Zithromax (azithromycin) 500 mg Route: PO; jg9 10:04 Follow up: Response: No adverse reaction jg9 08:40 Drug: Motrin (ibuprofen) 600 mg Route: PO; jg9 10:04 Follow up: Response: No adverse reaction; Marked relief of symptoms jg9 08:40 Drug: Tylenol 1000 mg Route: PO; jg9 10:04 Follow up: Response: No adverse reaction; Marked relief of symptoms jg9 09:18 Drug: Rocephin (cefTRIAXone) 1 grams Route: IV; Rate: per protocol; Site: left forearm; jg9 10:04 Follow up: IV Status: Completed infusion; IV Intake: 50ml jg9 09:48 Drug: Pepcid (famotidine) 40 mg Route: PO; jg9 10:21 Follow up: Response: No adverse reaction jg9 Medication: 10:49 VIS not applicable for this client. jg9 Intake: 10:04 IV: 50ml; Total: 50ml. jg9 10:15 IV: 1000ml; Total: 1050ml. jg9 Outcome: 09:40 Discharge ordered by MD. mitchell 10:43 Discharged to home ambulatory. jg9 10:43 Condition: stable 10:46 Discharge instructions given to patient, Instructed on discharge instructions, follow jg9 up and referral plans. Demonstrated understanding of instructions, follow-up care, Prescriptions given X 4. 10:49 Patient left the ED. jg9 Signatures: Joseph Juárez MD MD cha Smirch, Shelby, RN RN ss Moreno, Amanda am2 Gilmore, Jennifer RN RN jg9 Corrections: (The following items were deleted from the chart) 08:09 08:02 BP 130 / 79; Pulse 121bpm; Resp 17bpm; Pulse Ox 97% RA; Temp 98.4F Temporal; ss 75.75 kg; Height 5 ft. 6 in.; BMI: 26.9; Pain 8/10; ss 10:48 10:46 Discharge instructions given to patient, Instructed on discharge instructions, jg9 follow up and referral plans. Demonstrated understanding of instructions, follow-up care, Prescriptions given X 2, jg9
--- NOTE | 2022-04-11 09:40 | EDPHYS ---
Physician Documentation [facility] Name: Summer Cassidy Age: 22 yrs Sex: Female : 2000 Arrival Date: 04/11/2022 Time: 07:49 Bed 15 Private MD: ED Physician Joseph Juárez HPI: 04/11 09:30 This 22 yrs old Female presents to ER via Ambulatory with complaints of Cough, paula Fever, Sore Throat, bodyaches/bloody phlegm. 09:30 The patient or guardian reports cough, that is intermittent. Onset: The paula symptoms/episode began/occurred 2 day(s) ago. 09:31 Severity of symptoms: At their worst the symptoms were mild, moderate, in the emergency paula department the symptoms are unchanged. Modifying factors: The symptoms are alleviated by nothing. Associated signs and symptoms: Pertinent positives: fever, nausea, rhinorrhea, sore throat. The patient has experienced similar episodes in the past, a few times. 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 - Social history:: Smoking status: Patient denies any tobacco usage or history of. ROS: 09:32 Eyes: Negative for injury, pain, redness, and discharge, Neck: Negative for injury, paula pain, and swelling, Cardiovascular: Negative for chest pain, palpitations, and edema, Respiratory: Negative for shortness of breath, cough, wheezing, and pleuritic chest pain, Abdomen/GI: Negative for abdominal pain, nausea, vomiting, diarrhea, and constipation, Back: Negative for injury and pain, : Negative for injury, bleeding, discharge, and swelling, MS/Extremity: Negative for injury and deformity, Skin: Negative for injury, rash, and discoloration, Neuro: Negative for headache, weakness, numbness, tingling, and seizure, Psych: Negative for depression, anxiety, suicide ideation, homicidal ideation, and hallucinations, Allergy/Immunology: Negative for hives, rash, and allergies, Endocrine: Negative for neck swelling, polydipsia, polyuria, polyphagia, and marked weight changes, Hematologic/Lymphatic: Negative for swollen nodes, abnormal bleeding, and unusual bruising. 09:32 Constitutional: Positive for body aches, chills, fever, malaise. 09:32 Eyes: 09:32 ENT: Positive for rhinorrhea, sinus congestion, sore throat. 09:32 Cardiovascular: Negative for chest pain. 09:32 MS/extremity: Negative for acute changes. Exam: 09:32 Constitutional: This is a well developed, well nourished patient who is awake, alert, paula and in no acute distress. Head/Face: Normocephalic, atraumatic. Eyes: Pupils equal round and reactive to light, extra-ocular motions intact. Lids and lashes normal. Conjunctiva and sclera are non-icteric and not injected. Cornea within normal limits. Periorbital areas with no swelling, redness, or edema. Neck: Trachea midline, no thyromegaly or masses palpated, and no cervical lymphadenopathy. Supple, full range of motion without nuchal rigidity, or vertebral point tenderness. No Meningismus. Chest/axilla: Normal chest wall appearance and motion. Nontender with no deformity. No lesions are appreciated. Cardiovascular: Regular rate and rhythm with a normal S1 and S2. No gallops, murmurs, or rubs. Normal PMI, no JVD. No pulse deficits. Respiratory: Lungs have equal breath sounds bilaterally, clear to auscultation and percussion. No rales, rhonchi or wheezes noted. No increased work of breathing, no retractions or nasal flaring. Abdomen/GI: Soft, non-tender, with normal bowel sounds. No distension or tympany. No guarding or rebound. No evidence of tenderness throughout. Back: No spinal tenderness. No costovertebral tenderness. Full range of motion. Skin: Warm, dry with normal turgor. Normal color with no rashes, no lesions, and no evidence of cellulitis. MS/ Extremity: Pulses equal, no cyanosis. Neurovascular intact. Full, normal range of motion. Neuro: Awake and alert, GCS 15, oriented to person, place, time, and situation. Cranial nerves II-XII grossly intact. Motor strength 5/5 in all extremities. Sensory grossly intact. Cerebellar exam normal. Normal gait. Psych: Awake, alert, with orientation to person, place and time. Behavior, mood, and affect are within normal limits. 09:32 ENT: Posterior pharynx: Airway: normal, no evidence of obstruction, Tonsils: bilaterally enlarged, with erythema, Uvula: normal, swelling, that is mild, erythema, is not appreciated, exudate, is not appreciated, peritonsillar mass, is not appreciated, pooling of secretions, is not appreciated. Vital Signs: 08:02 BP 130 / 79; Pulse 121; Resp 17; Temp 101.1(O); Pulse Ox 97% on R/A; Weight 75.75 kg; ss Height 5 ft. 6 in. (167.64 cm); Pain 8/10; 08:08 Temp 101.1(O); ss 10:00 BP 134 / 75; Pulse 100; Resp 17 S; Pulse Ox 17% on R/A; jg9 08:02 Body Mass Index 26.95 (75.75 kg, 167.64 cm) ss MDM: 08:06 Patient medically screened. paula 09:34 Differential diagnosis: bronchitis, influenza, laryngitis, peritonsillar abscess paula chlamydia pharyngitis, neisseria gonorrheoeae pharangitis, pharyngitis, retropharyngeal abcess tonsillitis, uvulitis. Differential Diagnosis: Bronchitis Influenza Upper Respiratory Infection Sinusitis Pharyngitis Otitis Media Viral Syndrome Pneumonia. Data reviewed: vital signs, nurses notes, lab test result(s), radiologic studies. 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 Test interpretation: by ED physician or midlevel provider: plain radiologic studies. Counseling: I had a detailed discussion with the patient and/or guardian regarding: the historical points, exam findings, and any diagnostic results supporting the discharge/admit diagnosis, lab results, radiology results, the need for outpatient follow up, for definitive care, a family practitioner. 04/11 08:08 Order name: Flu; Complete Time: : paula 04/11 08:08 Order name: SARS RAPID; Complete Time: paula 04/11 08:08 Order name: Strep; Complete Time: : paula 04/11 08:08 Order name: CBC with Diff; Complete Time: : paula 04/11 08:08 Order name: Comprehensive Metabolic Panel; Complete Time: 10:05 [facility] 04/11 09:24 Order name: Throat Culture [facility] 04/11 08:56 Order name: Labs - recollect needed: recollect chemistries hemolyzed.; Complete Time: eb 09:25 04/11 09:38 Order name: SARS-COV-2 RT PCR (Document "Date of Onset" if Symptomatic) paula Administered Medications: 08:40 Drug: NS 0.9% 1000 ml Route: IV; Rate: 1 bolus; Site: left forearm; jg9 10:15 Follow up: IV Status: Completed infusion; IV Intake: 1000ml jg9 08:40 Drug: Zithromax (azithromycin) 500 mg Route: PO; jg9 10:04 Follow up: Response: No adverse reaction jg9 08:40 Drug: Motrin (ibuprofen) 600 mg Route: PO; jg9 10:04 Follow up: Response: No adverse reaction; Marked relief of symptoms jg9 08:40 Drug: Tylenol 1000 mg Route: PO; jg9 10:04 Follow up: Response: No adverse reaction; Marked relief of symptoms jg9 09:18 Drug: Rocephin (cefTRIAXone) 1 grams Route: IV; Rate: per protocol; Site: left forearm; jg9 10:04 Follow up: IV Status: Completed infusion; IV Intake: 50ml jg9 09:48 Drug: Pepcid (famotidine) 40 mg Route: PO; jg9 10:21 Follow up: Response: No adverse reaction jg9 Disposition Summary: 04/11/22 09:40 Discharge Ordered Location: Home paula Problem: new paula Symptoms: have improved paula Condition: Stable paula Diagnosis - Fever, unspecified paula - Acute tonsillitis, unspecified paula - Acute upper respiratory infection, unspecified paula Followup: paula - With: Private Physician - When: 2 - 3 days - Reason: Recheck today's complaints, Continuance of care, Re-evaluation by your physician Discharge Instructions: - Discharge Summary Sheet paula - Fever, Adult paula - Tonsillitis paula - Tonsillitis, [id number] paula - Cool Mist Vaporizer paula - Upper Respiratory Infection, Adult, [id number] paula - Cough, Adult paula Forms: - Medication Reconciliation Form paula - Thank You Letter paula - Work release form paula - Antibiotic Education paula - Prescription Opioid Use paula Prescriptions: - Pepcid 20 mg Oral Tablet - take 1 tablet by ORAL route every 12 hours for 10 days; 20 tablet; Refills: 0, [facility] Product Selection Permitted - Zithromax 500 mg Oral Tablet - take 1 tablet by ORAL route once daily for 5 days; 5 tablet; Refills: 0, [facility] Product Selection Permitted - Zofran 4 mg Oral Tablet - take 1 tablet by ORAL route every 12 hours As needed; 10 tablet; Refills: 0, [facility] Product Selection Permitted - Bromfed DM 2-30-10 mg/5 mL Oral syrup - take 7.5 milliliter by ORAL route every 6 hours; 160 milliliter; Refills: 0, [facility] Product Selection Permitted Signatures: Dispatcher [employer] Joseph Reed MD MD cha Smirch, Shelby RN Malini Diaz Jennifer RN RN [email or web address]
[2022-04-11 09:56] LABS: Albumin 3.5 g/dL (3.4-5.0); Bilirubin Total 0.5 mg/dL (0.2-1.0); Potassium 3.7 mmol/L (3.5-5.1); Protein, Total 7.7 g/dL (6.4-8.2)
[2022-04-11] MEDS ORDERED: FAMOTIDINE 20 MG TAB ONE (09:56)
[2022-04-11 11:04] VITALS: TEMP 101.1
[2022-04-11 11:09] VITALS: BP 134/75; O2SAT 17
== END 2022-04-11 10:49 | disposition home or self-care (01) ==
LOC: ER 07:45
DX: J03.90 Acute tonsillitis, unspecified (principal); J06.9 Acute upper respiratory infection, unspecified; Z20.822 Contact with and (suspected) exposure to COVID-19; Z88.5 Allergy status to narcotic agent
CPT/HCPCS: 36415; 80053; 85025; 87070; 87081; 87804; 87811; 96361; 96365; 99284; J7030; U0003

== ENCOUNTER 2022-10-05 04:13 | Emergency (ER) | payer SELFPAY ==
--- OUTSIDE RECORDS SUMMARY | 2022-10-05 04:17 | XMS REPORT | Continuity of Care Document ---
:2000 Author Organization [facility] t Address [address] Chambers [address] [place] [address] Care Team Providers Name Role Phone HOLLY CALVO Primary Care Physician Unavailable IRINEO CATALAN Attending Clinician Unavailable HOLLY CALVO Attending Clinician Unavailable Tanya WHCNPHolly Attending Clinician [phone] Irineo Resendez Attending Clinician Visit, SandraRmchp Nurse Attending Clinician Unavailable Doctor Unassigned, [place] Attending Clinician Unavailable Tim Weldon DO Attending Clinician Clifford Don MD Attending Clinician Julianna BAILON, Ben Attending Clinician [phone] Ultrasound, Ang-Mfm Attending Clinician Unavailable Cornelia BAILON, Julius Lawson Attending Clinician Umair Laird MD Attending Clinician Jas BAILON, Jessica Attending Clinician Payers Payer Name Policy Type Policy Number Effective Date Expiration Date S ource [employer] M[employer] CHIP [id number] 2020 LAURA LOW FPL 00:00:00 FAMILY PLANNING [id number] 2022 ANA 101-150% 00:00:00 Problems Condition Condition Condition Status Onset Resolution Last Treating Co mments Source Name Details Category Date Date Treatment Clinician Date Missed Missed Disease Active 2021-08 Univers menses menses 0-12 ity of 00:00: [place] 00 Medical Branch Urinary Urinary Disease Active 2021-08 Univers frequency frequency 0-12 ity of 00:00: [place] [facility] Nausea and Nausea and Disease Active 2021-08 [place] vomiting, vomiting, 0-12 it[place] of [place] d vomiting 00 Me dical type type Branch Other Other Disease Active Univers general general 2-09 [place] of counseling [place] advice and advice 00 Me dical for for Branch contracept contracept mamie mamie management management Chorioamni Chorioamni Disease Active 2019-08 [place] onitis onitis 2-31 ity of 00:00: [place] [facility] 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 2-31 it y of tosis tosis 00:00: [place] [facility] History of History of Disease Active 2019-08 [place] kidney kidney 2-28 ity of stones stones 00:00: [place] [facility] Vaginal Vaginal Disease Active 2020- Univers yeast yeast 0-23 [place] infection [place] Vaginal Vaginal Disease Active 2020- Univers itching itching 0-14 ity of 00:00: [place] [facility] Flu Flu Disease Active 2020 Univers vaccine vaccine 0-14 ity of need need 00:00: [place] [facility] Iron Iron Disease Active 2020- Univers disorder disorder 8-12 ity of 00:00: [place] [facility] Allergies, Adverse Reactions, Alerts Allergy Allergy Status Severity Reaction(s) Onset Inactive Treating Comm ents Source Name Type Date Date Clinician TRAMADOL DRUG Active Hives 2020- Univers INGREDI 8-12 ity of 00:00: [place] 00 Medical [facility] Tramadol Propensi Active Hives 2020-0 Univer s ty to 8-12 ity of adverse 00:00: [place] reaction 00 Medical s Branch Social History Social Habit Start Date Stop Date Quantity Comments Source Exposure to 2022-05-25 2022-06-04 Not sure [facility] SARS-CoV-2 00:00:00 09:32:00 [facility] (event) [place] Alcohol intake 2022-02-04 2022-02-04 Ex-drinker [facility] 00:00:00 00:00:00 (finding) [facility] Tobacco use and 2020-04-04 2020-04-04 Smokeless tobacco Un iversity of exposure 00:00:00 00:00:00 non-user [facility] Sex Assigned At [birth year] Universit y of 00:00:00 00:00:00 [facility] Smoking Status Start Date Stop Date Source Never smoked tobacco [facility] Medications Ordered Filled Start Stop Current Ordering Indication Dosage Frequency Signature Comments Components Source Medication Medication Date Date Medication? Clinician (SIG) Name Name No known 2021-08 No No known Unive rs medications 0-12 medication it y of 10:43: s [address] No known 2021-08 No No known Unive rs medications 0-12 medication it y of 10:43: [address] No known 2021-08 No No known Unive rs medications 0-12 medication it y of 10:43: s [address] No known 2021-08 No No known Unive rs medications 0-12 medication it y of 10:43: [address] medroxyPROG 2021- No [id number] 150mg Univers ESTERone 05-06 ity of (DEPO-PROVE 15:00: 14:06 [place] RA) syringe 00 :00 Medical 150 mg Branch medroxyPROG 2021- No [id number] 150mg 150 mg, Univers ESTERone 05-06 Intramuscu ity of (DEPO-PROVE 15:00: 14:06 lar, ONCE, [place] RA) syringe 00 :00 1 dose, [facility] at 1000, Routine medroxyPROG 2021- No [id number] 150mg Univers ESTERone 11-13 ity of (DEPO-PROVE 16:30: 14:05 [place] RA) 00 :34 Medical injection Branch 150 mg Immunizations Ordered Filled Immunization Date Status Comments Sourc e Immunization Name Name HPV9 2021-11-06 Completed [facility] 00:00:00 [facility] 2021-11-06 Completed University of 00:00:00 [place] [facility] HPV9 2021-11-06 Completed University of 00:00:00 [place] [facility] HPV9 2021-11-06 Completed University of 00:00:00 [place] [facility] HPV9 2021-11-06 Completed University of 00:00:00 [facility] HPV9 2020-10-02 Completed University of 00:00:00 [facility] HPV9 2020-10-02 Completed University of 00:00:00 [place] [facility] HPV9 2020-10-02 Completed University of 00:00:00 [place] [facility] HPV9 2020-10-02 Completed University of 00:00:00 [facility] HPV9 2020-10-02 Completed University of 00:00:00 [facility] HPV9 2020-08-22 Completed University of 00:00:00 [facility] HPV9 2020-08-22 Completed University of 00:00:00 [facility] HPV9 2020-08-22 Completed University of 00:00:00 [facility] HPV9 2020-08-22 Completed University of 00:00:00 [facility] HPV9 2020-08-22 Completed University of 00:00:00 [facility] Influenza Virus 2020-06-06 Completed Universit y of Vaccine Quad .5 mL 00:00:00 [facility] 6+ MO Branch TDAP 2020-06-06 Completed University of 00:00:00 [facility] Influenza Virus 2020-06-06 Completed Universit y of Vaccine Quad .5 mL 00:00:00 [facility] 6+ MO Branch TDAP 2020-06-06 Completed University of 00:00:00 [facility] Influenza Virus 2020-06-06 Completed Universit y of Vaccine Quad .5 mL 00:00:00 [facility] IM 6+ MO Branch TDAP 2020-06-06 Completed University of 00:00:00 [facility] Influenza Virus 2020-06-06 Completed Universit y of Vaccine Quad .5 mL 00:00:00 [facility] IM 6+ MO Branch TDAP 2020-06-06 Completed University of 00:00:00 [facility] Influenza Virus 2020-06-06 Completed Universit y of Vaccine Quad .5 mL 00:00:00 [facility] 6+ MO Branch TDAP 2020-06-06 Completed University of 00:00:00 [place] [facility] Vital Signs Vital Name Observation Time Observation Value Comments Source Systolic blood 2022-06-04 14:34:00 116 mm[Hg] Univer sity of pressure [place] [facility] Diastolic blood 2022-06-04 14:34:00 79 mm[Hg] Unive rsity of pressure [facility] Branch Heart rate 2022-06-04 14:34:00 97 /min Universi ty of [place] [facility] Body temperature 2022-06-04 14:34:00 36.72 Susan Univ ersity of [facility] Branch Respiratory rate 2022-06-04 14:34:00 17 /min Univ ersity of [facility] Branch Body height 2022-06-04 14:34:00 165.1 cm Universi ty of [facility] Branch Body weight 2022-06-04 14:34:00 73.483 kg Universi ty of [facility] Branch BMI 2022-06-04 14:34:00 26.96 kg/m2 Universi ty of [facility] Branch Systolic blood 2022-05-06 14:01:00 128 mm[Hg] Univer sity of pressure [facility] Branch Diastolic blood 2022-05-06 14:01:00 78 mm[Hg] Unive rsity of pressure [facility] Branch Heart rate 2022-05-06 14:01:00 92 /min Universi ty of [place] [facility] Body temperature 2022-05-06 14:01:00 36.44 Susan Univ ersity of [facility] Branch Respiratory rate 2022-05-06 14:01:00 18 /min Univ ersity of [place] [facility] Body height 2022-05-06 14:01:00 165.1 cm Universi ty of [place] [facility] Body weight 2022-05-06 14:01:00 73.211 kg Universi ty of [place] [facility] BMI 2022-05-06 14:01:00 26.86 kg/m2 Universi ty of [place] [facility] Procedures Procedure Date / Time Performed Performing Clinician Sour e POCT TEST 2022-06-04 00:00:00 Irineo Catalan [facility] POCT URINALYSIS W/O 2022-06-04 00:00:00 [facility] En[facility] Start End Encounter Admission Attending Care Care Encounter Source Date/Time Date/Time Type Type Clinicians Facility Department ID 2021-06-22 Outpatient [facility] [id number] Univers 13:18:03 ity of [facility] 2022-11-06 2022-11-06 Outpatient Lulu CATALNA [facility] [id number] Univers 10:30:00 10:30:00 SINAIA frankliny o bert [facility] 2022-11-06 2022-11-06 Outpatient R HOSSEIN [facility] [id number] Univers 08:15:00 08:15:00 ROSJEREMYNDA ity o f [facility] 2022-07-29 2022-07-29 Outpatient R AKINTANA [facility] [id number] Univers 09:15:00 09:15:00 HOLLY franklinmac o [facility] 2022-07-29 2022-07-29 Outpatient Lulu CATALAN [facility] [id number] Univers 08:45:00 08:45:00 IRINEO adam o [facility] 2022-06-10 2022-06-10 Telephone [facility] [id number] [id number] [facility] 00:00:00 00:00:00 Holly Carrero MOLDER MEAT [id number] ity of [facility] [id number] Demetrio as MATERNAL [id number] Med ical & CHILD [address] [place] [address] 2022-06-04 2022-06-04 Office [facility] 1.2.840.114 [id number] Univers 09:15:00 10:09:05 Visit Irineo R MOLDER MEAT 350.1.13.10 ity [facility] [id number] Demetrio as MATERNAL [id number] Med ical & CHILD [address] [place] [address] 2022-06-04 2022-06-04 Outpatient Lulu CATALAN [facility] [id number] Univers 09:15:00 10:09:05 JEFERSONAPRILA ity o [facility] 2022-05-19 2022-05-19 Outpatient Lulu CATALAN [facility] [id number] Univers 08:30:00 08:30:00 GITAJEREMYAPRILA ity o [facility] 2022-05-06 2022-05-06 Nurse Visit, Miguel-Rmchp Nurse [facility] 1.2 .840.114 [id number] Univers 08:30:00 09:00:55 Visit JoelStephen prestonroas Carrero [place] 350.1.13. 10 ity [facility] [id number] Demetrio as MATERNAL [id number] [facility] & [address] 2022-05-06 2022-05-06 Outpatient R TANYA [facility] [id number] Univers 08:30:00 08:30:00 HOLLY itmac o [facility] 2022-05-06 2022-05-06 Outpatient R HOSSEIN [facility] [id number] Univers 08:00:00 08:00:00 JEFERSONARIANNE jair o [facility] 2022-04-29 2022-04-29 [facility] [id number] Univers 08:30:00 08:30:00 JEFERSONARIANNE reidmac o [facility] 2022-02-05 2022-02-05 [facility]patient [facility] [id number] Univers 08:00:00 08:00:00 JEFERSONARIANNE jair o [facility] 2022-02-04 2022-02-04 Nurse Visit, Miguel-Loganp Nurse [facility] 1.2 .840.114 [id number] Univers 15:00:00 15:15:00 Visit Irineo Catalan [place] 350.1.13.10 ity [facility] [id number] Demetrio as MATERNAL [phone] [facility] & CHILD [address] [place] [address] 2022-02-04 2022-02-04 Outpatient [facility] [id number] Univers 15:00:00 15:00:00 JEFERSONNDA jair o [facility] 2021-11-20 2021-11-20 Outpatient R [facility] [id number] Univers 10:30:00 10:30:00 ity [facility] 2021-11-14 2021-11-14 Outpatient [facility] [id number] Univers 14:30:00 14:30:00 IRINEO morales [facility] 2021-11-13 2021-11-13 Outpatient R HOSSEIN [facility] [id number] Univers 10:30:00 11:30:05 IRINEO morales [facility] 2021-11-13 2021-11-13 Nurse Visit, Ang-Rmchp Nurse [facility] 1.2 .840.114 [id number] Univers 10:30:00 11:30:05 Visit Irineo Catalan R [place] 350.1.13.10 ity [facility] [id number] Demetrio as MATERNAL [id number] Med ical & CHILD [address] [place] [address] 2021-11-13 2021-11-13 Outpatient R HOSSEIN [facility] [id number] Univers 10:30:00 10:30:00 IRINEO morales [facility] 2021-11-11 2021-11-11 Outpatient R AKINSIPE, [facility] [id number] Univers 10:30:00 10:30:00 HOLLY morales [facility] 2021-11-06 2021-11-06 Outpatient R AKINSIPE, [facility] [id number] Univers 13:00:00 13:00:00 HOLLY morales [facility] 2021-11-06 2021-11-06 Outpatient R AKINSIPE, [facility] [id number] Univers 13:00:00 11:42:45 HOLLY adam o [facility] 2021-11-06 2021-11-06 Outpatient R AKINSIPE, [facility] [id number] Univers 10:30:00 11:42:38 HOLLY adam o [facility] 2021-11-06 2021-11-06 Outpatient R AKINSIPE, [facility] [id number] Univers 10:30:00 11:42:38 HOLLY adam o [facility] 2021-11-06 2021-11-06 Office Akinsipe, [facility] [id number] Univers 10:30:00 11:42:38 Visit Holly Carrero [place] 350.1.13.10 ity [facility] [id number] Demetrio as MATERNAL [id number] [facility] ical & CHILD [address] [place] [address] 2021-11-06 2021-11-06 Outpatient R TANYA [facility] [id number] Univers 10:00:00 10:00:00 HOLLY adam o [facility] 2021-11-06 2021-11-06 Orders Doctor ALEGRIA 1.2.840.114 [id number] Univers 00:00:00 00:00:00 Only Unassigned, CRY[place] 350.1.13.10 ity [facility] [id number] Demetrio as [id number] [address] 2021-10-03 2021-10-03 [facility] [id number] Univers 10:45:00 10:45:00 HOLLYROSA adam o [facility] 2021-10-03 2021-10-03 Outpatient R [facility] [id number] Univers 10:00:00 10:00:00 ity [facility] 2021-05-29 2021-05-29 Outpatient R [facility] [id number] Univers 14:00:00 14:[facility] 2021-04-25 2021-04-25 Outpatient R [facility] [id number] Univers 13:30:00 13:30:[facility] 2021-01-17 2021-01-17 Office Hossein NCNATE 1.2.840.114 [id number] Univers 13:29:21 14:16:25 Visit Irineo Lawson [place] 350.1.13.10 ity [facility] [id number] Demetrio as MATERNAL [id number] [facility] & CHILD [address] [place] [address] 2021-01-17 2021-01-17 [facility] [id number] Univers 13:15:00 13:15:00 IRINEO morales [facility] 2021-01-14 2021-01-14 [facility] [id number] Univers 10:30:00 10:30:00 IRINEO morales f [facility] 2020-11-13 2020-11-13 Patient Shiraz [facility] [id number] [id number] Univers 00:00:00 00:00:00 Outreach Tim PRIMARY 350.1.13.10 i ty of [facility] [id number] [place] [phone] Al dical [address] [place] [address] 2020-10-16 2020-10-16 Office [facility] 1.2.840.114 [id number] Univers 14:08:20 14:49:54 Visit Gitaharini Lawson [place]AT 350.1.13.10 ity of [facility] [id number] Demetrio as MATERNAL [id number] Med ical & CHILD [address] [place] [address] 2020-10-16 2020-10-16 [facility] [id number] Univers 14:00:00 14:00:00 IRINEO morales [facility] 2020-10-02 2020-10-02 Outpatient R AKINTANA, [facility] [id number] Univers 09:30:00 10:42:38 HOLLY reidmac carmen [facility] 2020-09-11 2020-09-11 Routine [facility] [id number] Univers 14:16:33 14:56:17 Holly Carrero MOLDER MEAT 350.1.13.10 ity of Visit [facility] [id number] Demetrio as MATERNAL [id number] Med ical & CHILD [address] [place] [address] 2020-09-11 2020-09-11 Outpatient [facility] [id number] Univers 14:15:00 14:15:00 HOLLY morales [facility] 2020-08-28 2020-08-28 Nurse Visit, Miguel-Rmchp Nurse [facility] 1.2 .840.114 [id number] Univers 08:34:23 08:51:19 Visit CatalanIrineo [place] 350.1.13.10 ity of [facility] [id number] Demetrio as MATERNAL [id number] Med ical & CHILD [address] [place] [address] 2020-08-28 2020-08-28 Outpatient R HOSSEIN [facility] [id number] Univers 08:30:00 08:30:00 ROSHUNDA ity o f [facility] 2020-08-22 2020-08-22 Outpatient R HOSSEIN [facility] [id number] Univers 08:45:00 08:45:00 ROSHUNDA ity o f [facility] 2020-08-20 2020-08-21 Anesthesia Dulce Donew RAJI 1.2.840.1 [id number] Univers 16:00:00 15:31:00 Ben Levine 350.1. 13.10 ity [id number] [place] [id number] [address] 2020-08-15 2020-08-15 Routine [facility] 1.2.840.114 [id number] Univers 12:45:48 13:16:36 Roshunda R [place] MEAT 350.1.13.10 ity of Visit REGIONAL [id number] Demetrio as MATERNAL [id number] [facility] ical & CHILD [address] [place] [address] 2020-08-15 2020-08-15 Outpatient Lulu CATALAN [facility] [id number] Univers 12:45:00 12:45:00 ROSHUNDA ity o f [facility] 2020-08-09 2020-08-09 Routine [facility] 1.2.840.114 [id number] Univers 10:59:51 11:22:44 Roshunda R [place]AT 350.1.13.10 ity of Visit REGIONAL [id number] Demetrio as MATERNAL [id number] [facility] ical & CHILD [address] [place] [address] 2020-08-09 2020-08-09 Outpatient Lulu EUGENEE [facility] [id number] Univers 10:45:00 10:45:00 ROSHUNDA ity o f [facility] 2020-08-02 2020-08-02 Routine [facility] 1.2.840.114 [id number] Univers 10:26:35 11:17:27 Roshunda R MOLDER MEAT 350.1.13.10 ity of Visit REGIONAL [id number] Demetrio as MATERNAL [id number] [facility] & CHILD [address] [place] [address] 2020-08-02 2020-08-02 Outpatient Lulu CATALAN [facility] [id number] Univers 10:45:00 10:45:00 ROSHUNDA ity o f [facility] 2020-07-26 2020-07-26 Routine [facility] 1.2.840.114 [id number] Univers 09:10:42 09:25:42 Roshunda R MOLDER MEAT 350.1.13.10 ity of Visit REGIONAL [id number] Demetrio as MATERNAL [id number] [facility] & [address] 2020-07-26 2020-07-26 Outpatient [facility] [id number] Univers 09:15:00 09:15:00 ROSHUNDA ity o f [facility] 2020-07-12 2020-07-12 Routine [facility] 1.2.840.114 [id number] Univers 09:22:24 09:37:24 Roshunda R [place]OLDER [place]AT 350.1.13.10 ity of Visit REGIONAL 4.2.7.2.686 Demetrio as MATERNAL [id number] [facility] & [address] 2020-07-12 2020-07-12 Outpatient [facility] [id number] Univers 09:15:00 09:15:00 ROSHUNDA ity o f [facility] 2020-06-28 2020-06-28 Case [facility] 1.2.840.114 [id number] Univers 00:00:00 00:00:00 Management Roshunda R [place]OLDER [place] 350.1.13.10 ity of [facility]AL 4.2.7.2.686 Demetrio as MATERNAL [id number] [facility] & [address] 2020-06-27 2020-06-27 Routine [facility] 1.2.840.114 [id number] Univers 09:33:06 10:30:38 Roshunda R MOLDER MEAT 350.1.13.10 ity of Visit REGIONAL [id number] Demetrio as MATERNAL [id number] [facility] ical & CHILD [address] [place] [address] 2020-06-27 2020-06-27 [facility] [id number] Univers 09:30:00 09:30:00 ROSJEREMYNDA ity o f [facility] 2020-06-22 2020-06-22 Telephone [facility] [id number] [id number] Univers 00:00:00 00:00:00 Rosjeremynda R MOLDER MEAT 350.1.13.10 ity of REGIONAL 4.2.7.2.686 Demetrio as MATERNAL [id number] [facility] & [address] 2020-06-20 2020-06-20 Out[facility] [id number] Univers 09:15:00 09:15:00 JEFERSONNDA ity o f [facility] 2020-06-19 2020-06-19 Orders Doctor RAJI 1.2.840.114 [id number] Univers 00:00:00 00:00:00 Only Unassigned, CRYSTAL 350.1.13.10 ity of [place] [facility] 4.2.7.2.686 Demetrio as [id number] [address] 2020-06-15 2020-06-15 Routine [facility] [id number] [id number] Univers 14:27:45 15:21:46 Holly C MOLDER MEAT 350.1.13.10 ity of Visit REGIONAL 4.2.7.2.686 Demetrio as MATERNAL [id number] [facility] ical & CHILD [address] [place] [address] 2020-06-15 2020-06-15 Outpatient R [facility] [id number] Univers 14:30:00 14:30:00 HOLLY itmac o f [facility] 2020-06-15 2020-06-15 Refill [facility] 1.2.840.114 [id number] Univers 00:00:00 00:00:00 Rosjeremynda R MOLDER MEAT 350.1.13.10 ity of REGIONAL 4.2.7.2.686 Demetrio as MATERNAL [id number] Med ical & CHILD 107 [facility] 2020-06-14 2020-06-14 Telephone Hossein [facility] [id number] Univers 00:00:00 00:00:00 Gitaharini Lulu Bradford 350.1.13.10 ity of [place].7.2.[place] Profess[place] [id number] Al dical nal 134 [facility] 2020-06-12 2020-06-12 Refill Doctor [facility] 1.2.840.114 [id number] Univers 00:00:00 00:00:00 Unassigned, MOLDER MEAT 350.1.13.10 ity of [place] REGIONAL 4.2.7.2.686 Demetrio as MATERNAL [id number] Med ical & CHILD 107 [facility] 2020-06-11 2020-06-11 Refill Doctor [facility] 1.2.840.114 [id number] Univers 00:00:00 00:00:00 Unassigned, MOLDER MEAT 350.1.13.10 ity of [place] [facility] [id number] Demetrio as MATERNAL [phone] Med ical & CHILD 107 [facility] 2020-06-06 2020-06-06 Outpatient R HOSSEIN NCNATE [facility] [id number] Univers 10:30:00 10:30:00 IRINEO ity o f [facility] 2020-06-06 2020-06-06 Routine Hossein [facility] 1.2.840.114 [id number] Univers 08:31:44 09:30:22 Irineo Lawson MOLDER MEAT 350.1.13.10 ity of Visit [facility] [id number] Demetrio as MATERNAL [phone] Med ical & CHILD 107 [facility] 2020-06-06 2020-06-06 Clinical Informatics Director Ultrasound, Sandran[place]acha [facility] 1.2 .840.114 [id number] Univers 07:59:18 08:59:18 Visit Julius Locke MOLDER MEAT 350.1.13.10 ity of Umair Laird REGIONAL 4.2.7.2.686 [place] MATERNAL [phone] Med ical & CHILD 369 [facility] 2020-06-06 2020-06-06 Case Hossein [facility] 1.2.840.114 [id number] Univers 00:00:00 00:00:00 Management Rosjeremynda R MOLDER MEAT 350.1.13.10 ity of REGIONAL 4.2.7.2.686 Demetrio as MATERNAL [phone] Med ical & CHILD 107 [facility] 2020-06-06 2020-06-06 Abstract Hossein [facility] 1.2.840.114 [id number] Univers 00:00:00 00:00:00 Roshunda R MOLDER MEAT 350.1.13.10 ity of REGIONAL 4.2.7.2.686 Demetrio as MATERNAL [phone] [facility] ical & CHILD [address] [place] [address] 2020-05-23 2020-05-23 Routine Hossein [facility] 1.2.840.114 [id number] Univers 10:44:11 11:40:45 Rosjeremynda R MOLDER MEAT 350.1.13.10 ity of Visit REGIONAL 4.2.7.2.686 Demetrio as MATERNAL [phone] [facility] & CHILD [address] [place] [address] 2020-05-23 2020-05-23 Outpatient R HOSSEIN [facility] [id number] Univers 10:45:00 10:45:00 ROSJEREMYNDA ity o f [facility] 2020-05-23 2020-05-23 Telephone Hossein NCNATE [id number] Univers 00:00:00 00:00:00 Rosjeremynda R MOLDER MEAT 350.1.13.10 ity of REGIONAL 4.2.7.2.686 Demetrio as MATERNAL [phone] [facility] ical & CHILD [address] [place] [address] 2020-05-23 2020-05-23 Orders Doctor ALEGRIA 1.2.840.114 [id number] Univers 00:00:00 00:00:00 Only Unassigned, CRYSTAL 350.1.13.10 ity of [place] [facility] 4.2.7.2.686 Demetrio as [phone] [address] 2020-05-08 2020-05-08 Abstract Hossein [facility] 1.2.840.114 [id number] Univers 00:00:00 00:00:00 Roshunda R MOLDER MEAT 350.1.13.10 ity of REGIONAL 4.2.7.2.686 Demetrio as MATERNAL [phone] Med ical & CHILD [address] [place] [address] 2020-05-07 2020-05-07 Clinical Informatics Director Ultrasound, [facility] 1.2 .840.114 [id number] Univers 07:56:15 09:01:34 Visit Jessica Mark MOLDER MEAT 350.1.13.10 ity of REGIONAL 4.2.7.2.686 Demetrio as MATERNAL [phone] Med ical & CHILD 369 [facility] 2020-05-07 2020-05-07 Outpatient P [facility] [id number] Univers 08:00:00 08:00:00 ity of [facility] 2020-05-02 2020-05-02 [facility] 1.2.840.114 [id number] Univers 10:43:26 11:29:45 Roshunda R MOLDER MEAT 350.1.13.10 ity of Visit [facility] 4.2.7.2.686 Demetrio as MATERNAL [phone] Med ical & CHILD [address] [place] [address] 2020-05-02 2020-05-02 [facility] [id number] Univers 10:45:00 10:45:00 ROSHUNDA ity o f [facility] 2020-04-05 2020-04-05 [facility] [id number] Univers 00:00:00 00:00:00 Roshunda R MOLDER MEAT 350.1.13.10 ity of REGIONAL 4.2.7.2.686 Demetrio as MATERNAL [phone] Med ical & CHILD [address] [place] [address] 2020-04-04 2020-04-04 Initial [facility] 1.2.840.114 [id number] Univers 09:25:13 11:02:41 Roshunda R MOLDER MEAT 350.1.13.10 ity of Visit REGIONAL 4.2.7.2.686 Demetrio as MATERNAL [phone] Med ical & CHILD [address] [place] [address] 2020-04-04 2020-04-04 Outpatient R HOSSEIN [facility] [id number] Univers 09:45:00 09:45:00 IIRNEO ity o f [facility] 2020-04-04 2020-04-04 Orders Doctor RAJI 1.2.840.114 [id number] Univers 00:00:00 00:00:00 Only Unassigned, CRYSTAL 350.1.13.10 ity of [place] [facility] 4.2.7.2.686 Demetrio as [phone] [address] Results Test Description Test Time Test Comments Results Result Comments Source POCT URINALYSIS W/O SPECIFIC GRAVITY 2022-06-04 14:39:00 Test Item Value Reference Range Interpretation Comme nts POCT PH U (test code = 3254) 7 mg/dl 5-8 POCT U LEUK EST (test code = 3263) negative Negative - Negative POCT U NIT (test code = 3262) negative Negative - Negative POCT U PROT (test code = 3259) trace Negative - Negative POCT U GLU (test code = 3256) negative Negative - Negative POCT U KETONE (test code = 3258) negative Negative - Negative POCT U BLD (test code = 3257) negative Negative - Negative [id number] 14:39:00 Test Item Value Reference Range Interpretation Comments POCT PREG (test code = 1605) Negative On board controls acceptable with C Yes Line (test code = 3574) POCT PREG LOT # (test code = 3575) POCT PREG TEST DATE (test code = 3576) [facility] [id number] 14:39:00 Test Item Value Reference Range Interpretation Comments POCT PH U (test code = 3254) 7 mg/dl 5-8 POCT U LEUK EST (test code = negative Negative - Negative 3263) POCT U NIT (test code = 3262) negative Negative - Negative POCT U PROT (test code = 3259) trace Negative - Negative POCT U GLU (test code = 3256) negative Negative - Negative POCT U KETONE (test code = 3258) negative Negative - Negative POCT U BLD (test code = 3257) negative Negative - Negative [facility] [id number] 14:39:00 Test Item Value Reference Range Interpretation Comments POCT PREG (test code = 1605) Negative On board controls acceptable with C Yes Line (test code = 3574) POCT PREG LOT # (test code = 3575) POCT PREG TEST DATE (test code = 3576) [facility] SPECIFIC [id number] 14:39:00 Test Item Value Reference Range Interpretation Comments POCT PH U (test code = 3254) 7 mg/dl 5-8 POCT U LEUK EST (test code = negative Negative - Negative 3263) POCT U NIT (test code = 3262) negative Negative - Negative POCT U PROT (test code = 3259) trace Negative - Negative POCT U GLU (test code = 3256) negative Negative - Negative POCT U KETONE (test code = 3258) negative Negative - Negative POCT U BLD (test code = 3257) negative Negative - Negative [facility] [id number] 14:39:00 Test Item Value Reference Range Interpretation Comments POCT PREG (test code = 1605) Negative On board controls acceptable with C Yes Line (test code = 3574) POCT PREG LOT # (test code = 3575) POCT PREG TEST DATE (test code = 3576) [facility]
--- NOTE | 2022-10-05 04:41 | ER ---
Nurse's Notes [facility] Name: Summer Cassidy Age: 22 yrs Sex: Female : 2000 Arrival Date: 10/05/2022 Time: 04:16 Bed 19 Private MD: Diagnosis: Unspecified otitis externa, left ear Presentation: 10/05 04:26 Chief complaint: Patient states: C/o bilateral ear pain/itchiness 06/02, states the ll3 left ear is more painful than the right. Coronavirus screen: Vaccine status: Patient reports receiving the 2nd dose of the covid vaccine. At this time, the client does not indicate any symptoms associated with coronavirus-19. Ebola Screen: No symptoms or risks identified at this time. Initial Sepsis Screen: Does the patient meet any 2 criteria? No. Patient's initial sepsis screen is negative. Does the patient have a suspected source of infection? No. Patient's initial sepsis screen is negative. Risk Assessment: Do you want to hurt yourself or someone else? Patient reports no desire to harm self or others. Onset of symptoms was September 29, 2022. 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 - Social history:: Smoking status: Patient denies any tobacco usage or history of. Screenin:19 [facility] ED Fall Risk Assessment (Adult) History of falling in the last 3 months, ha1 including since admission No falls in past 3 months (0 pts) Confusion or Disorientation No (0 pts) Intoxicated or Sedated No (0 pts) Impaired Gait No (0 pts) Mobility Assist Device Used No (0 pt) Altered Elimination No (0 pt) Score/Fall Risk Level 0 - 2 = Low Risk Oriented to surroundings, Maintained a safe environment, Educated pt \T\ family on fall prevention, incl call for assistance when getting out of bed, Hourly rounding (assess needs \T\ fall precautionary measures) done. Abuse screen: Denies threats or abuse. Denies injuries from another. Nutritional screening: No deficits noted. Tuberculosis screening: No symptoms or risk factors identified. Assessment: 04:19 General: Appears uncomfortable, Behavior is cooperative. Pain: Complains of pain in ha1 bilateral ear Pain does not radiate. Pain currently is 10 out of 10 on a pain scale. Alleviated by medications. Neuro: Level of Consciousness is awake, alert, obeys commands, Oriented to person, place, time, situation. Cardiovascular: Capillary refill < 3 seconds Patient's skin is warm and dry. Respiratory: Airway is patent Respiratory effort is even, unlabored, Respiratory pattern is regular, symmetrical. EENT: Ear canal redness. Vital Signs: 04:17 BP 126 / 88; Pulse 85; Resp 17 S; Pulse Ox 100% on R/A; ha1 04:26 BP 126 / 88; Pulse 85; Resp 17; Temp 97.9(O); Pulse Ox 100% on R/A; Weight 75.75 kg ll3 (R); Height 5 ft. 6 in. (167.64 cm) (R); Pain 10/10; 05:00 BP 126 / 88; Pulse 82; Resp 16; Pulse Ox 100% on R/A; ha1 04:26 Body Mass Index 26.95 (75.75 kg, 167.64 cm) ll3 ED Course: 04:16 Patient arrived in ED. ja2 04:19 Patient has correct armband on for positive identification. Bed in low position. Call ha1 light in reach. Side rails up X 1. 04:20 Cody Ridley DO is Attending Physician. ms3 04:24 La Nena Sage, RN is Primary Nurse. ha1 04:30 Triage completed. ll3 04:30 Arm band placed on Patient placed in an exam room, on a stretcher, on pulse oximetry. ll3 04:40 Apolinar Waddell DO is Referral Physician. ms3 05:05 No provider procedures requiring assistance completed. Patient did not have IV access ha1 during this emergency room visit. Administered Medications: 04:47 Not Given (not in inventory ): CIPRODEX (ciprofloxacin-dexamethasone) Drops 4 drops ha1 Otic in left ear once 05:00 Drug: Wbpnplcq-Djbdlffcw-LN Drops 1 appful Route: Otic; Site: left ear; ha1 Medication: 05:06 VIS not applicable for this client. ha1 Outcome: 04:40 Discharge ordered by . ms3 05:06 Discharged to home ambulatory. ha1 05:06 Condition: stable 05:06 Discharge instructions given to patient, Instructed on discharge instructions, follow up and referral plans. medication usage, Demonstrated understanding of instructions, follow-up care, medications, Prescriptions given X 1. 05:08 Patient left the ED. ha1 Signatures: Cody Ridley DO DO ms3 Josee Mitchell2 Kelly Cleveland, RN RN 3 La Nena Sage, RN RN ha1
--- NOTE | 2022-10-05 04:41 | EDPHYS ---
Physician Documentation [facility] Name: Summer Cassidy Age: 22 yrs Sex: Female : 2000 Arrival Date: 10/05/2022 Time: 04:16 Bed 19 Private MD: ED Physician Cody Ridley HPI: 10/05 04:42 This 22 yrs old Female presents to ER via Ambulatory with complaints of Ear ms3 Pain, Fever. 04:42 22-year-old female with no past medical history presents for left ear pain that is been ms3 ongoing for 1 week. Patient states the pain is a 10/10 and became worse at 1 AM. Patient states yesterday she did note a temp of 100.8. Patient denies nausea, vomiting, headache. Patient denies alleviating or inciting factors. 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 - Social history:: Smoking status: Patient denies any tobacco usage or history of. ROS: 04:42 Constitutional: Negative for fever, and chills. Neck: Negative for injury, pain, and ms3 swelling, Cardiovascular: Negative for chest pain, and palpitations. Respiratory: Negative for shortness of breath, cough, wheezing, and pleuritic chest pain, Abdomen/GI: Negative for abdominal pain, nausea, vomiting, diarrhea, and constipation. 04:42 Skin: Negative for injury, rash, and discoloration. 04:42 ENT: Positive for ear pain. 04:42 All other systems are negative. Exam: 04:42 Constitutional: This is a well developed, well nourished patient who is awake, alert, ms3 and in no acute distress. Head/Face: Normocephalic, atraumatic. Eyes: Pupils equal round and reactive to light, extra-ocular motions intact. Lids and lashes normal. Conjunctiva and sclera are non-icteric and not injected. Periorbital areas with no swelling, redness, or edema. Chest/axilla: Normal chest wall appearance and motion. Nontender with no deformity. Cardiovascular: Regular rate and rhythm with a normal S1 and S2. No gallops, murmurs, or rubs. Normal PMI, no JVD. No pulse deficits. Respiratory: Lungs have equal breath sounds bilaterally, clear to auscultation and percussion. No rales, rhonchi or wheezes noted. No increased work of breathing, no retractions or nasal flaring. Abdomen/GI: Soft, non-tender, with normal bowel sounds. No distension or tympany. No guarding or rebound. No evidence of tenderness throughout. 04:42 ENT: External ear(s): erythema, that is moderate, of the left ear canal, TM's: are normal, no acute changes. Vital Signs: 04:17 BP 126 / 88; Pulse 85; Resp 17 S; Pulse Ox 100% on R/A; ha1 04:26 BP 126 / 88; Pulse 85; Resp 17; Temp 97.9(O); Pulse Ox 100% on R/A; Weight 75.75 kg ll3 (R); Height 5 ft. 6 in. (167.64 cm) (R); Pain 10/10; 05:00 BP 126 / 88; Pulse 82; Resp 16; Pulse Ox 100% on R/A; ha1 04:26 Body Mass Index 26.95 (75.75 kg, 167.64 cm) ll3 MDM: 04:39 Patient medically screened. ms3 04:42 Differential diagnosis: otitis externa. Data reviewed: vital signs, nurses notes, and ms3 as a result, I will discharge patient. I considered the following discharge prescriptions or medication management in the emergency department Medications were administered in the Emergency Department. See MAR. Care significantly affected by the following Social Determinants of Health: Poor access to healthcare and/or lack of insurance. Counseling: I had a detailed discussion with the patient and/or guardian regarding: the historical points, exam findings, and any diagnostic results supporting the discharge/admit diagnosis, the need for outpatient follow up, to return to the emergency department if symptoms worsen or persist or if there are any questions or concerns that arise at home. ED course: Discussed physical exam findings with patient. Patient to follow-up with Dr. Waddell in 2 to 3 days. Patient understands and agrees with plan. All questions were answered. Return precautions discussed include worsening symptoms, or any other concerns. Administered Medications: 04:47 Not Given (not in inventory ): CIPRODEX (ciprofloxacin-dexamethasone) Drops 4 drops ha1 Otic in left ear once 05:00 Drug: Muzezici-Wlbzbrlxd-ZM Drops 1 appful Route: Otic; Site: left ear; ha1 Disposition Summary: 10/05/22 04:40 Discharge Ordered Location: Home ms3 Condition: Stable ms3 Diagnosis - Unspecified otitis externa, left ear ms3 Followup: ms3 - With: Apolinar Waddell DO - When: 2 - 3 days - Reason: Recheck today's complaints Discharge Instructions: - Discharge Summary Sheet ms3 - Ear Drops, Adult ms3 - Otitis Externa ms3 - Otitis Externa, Lwpw-ch-Lvjo ms3 Forms: - Medication Reconciliation Form ms3 - Thank You Letter ms3 - Antibiotic Education ms3 - Prescription Opioid Use ms3 Prescriptions: - osmyyevm-hhpasfopf-IS 3.5-10,000-1 mg/mL-unit/mL-% Otic solution - instill 4 drop by OTIC route 4 times per day; 1 bottle; Refills: 0, Product ms3 Selection Permitted Signatures: Cody Ridley DO DO ms3 Kelly Cleveland RN RN 3 La Nena Sage RN RN ha1
[2022-10-05] MEDS ORDERED: NEOMY/POLY/HC 1% OTIC DROPS ONE (04:59)
[2022-10-05 05:18] VITALS: BP 126/88; O2SAT 100
[2022-10-05 05:30] VITALS: TEMP 97.9
== END 2022-10-05 05:08 | disposition home or self-care (01) ==
LOC: ER 04:13
DX: H60.92 Unspecified otitis externa, left ear (principal)
CPT/HCPCS: 99283